=== PATIENT | male | born 1950 | race Caucasian/White ===

== ENCOUNTER 2021-09-01 14:52 | Inpatient (IN) ==
[2021-09-01 16:29] LABS: Basophils # (auto) 0.01 K/uL (0-0.2); Basophils % (auto) 0.2 %; Eosinophils # (auto) 0.09 K/uL (0-0.5); Hematocrit (blood only) 42.2 % (42-52); Hemoglobin 14.2 g/dL (14.0-18.0); Immature Granulocytes # (auto) 0.02 K/uL (0.00-0.02); Immature Granulocytes % (auto) 0.4 %; Lymphocytes # (auto) 0.82 K/uL (1.2-3.4); Lymphocytes % (auto) 17.9 %; Mean Corpuscular Hemoglobin 29.3 pg (25-34); Mean Corpuscular Hgb Conc 33.6 g/dL (32-36); Mean Corpuscular Volume 87.2 fL (80-100); Mean Platelet Volume 9.9 fL (7.4-10.4); Monocytes # (auto) 0.82 K/uL (0.11-0.59); Monocytes % (auto) 17.9 %; Neutrophils # (auto) 2.81 K/uL (1.4-6.5); Neutrophils % (auto) 61.6 %; Platelet Count 204 K/uL (130-400); RDW Coefficient of Variation 13.9 % (11.5-14.5); RDW Standard Deviation 45.1 fL (36.4-46.3); Red Blood Count 4.84 M/uL (4.7-6.1); White Blood Count 4.57 K/uL (4.8-10.8)
[2021-09-01] MEDS ORDERED: Heparin IV Adult Wt-Based Standard WITH Bolus Protocol IV STA ×2 (16:30→21:40)
[2021-09-01 16:43] LABS: BUN Creatinine Ratio 15.9 (10-20); Blood Urea Nitrogen 17 mg/dl (7-18); Calcium 9.3 mg/dl (8.5-10.1); Carbon Dioxide 27 mmol/L (21-32); Chloride 102 mmol/L (98-107); Creatinine Clr Calc Pharmacy 78.8 ml/min; Est GFR (African American) 83.5 ml/min; Est GFR (Non-African American) 72.1 ml/min; Glucose 119 mg/dl (70-99); Lipase 104 U/L (73-393); Sodium 136 mmol/L (136-145)
[2021-09-01] MEDS ORDERED: HEPARIN SOD (PORCINE) 1000 UNIT/ML IV ONE (16:45)
[2021-09-01 16:48] LABS: Troponin I < 0.015 ng/ml (0-0.045)
[2021-09-01] MEDS: HEPARIN SODIUM/DEXTROSE 25,000 UNITS/500 ML BAG IV SCH (16:48)
--- NOTE | 2021-09-01 17:10 | History & Physical Report ---
Date of Service September 01, 2021 Assessment & Plan (1) Bilateral pulmonary embolism: (2) HTN (hypertension): (3) GERD (gastroesophageal reflux disease): (4) Dyslipidemia: Plan: - Continue heparin gtt - hopeful to transition to oral anticoagulation tomorrow pending results of work-up - Monitor on telemetry overnight for any potential arrhythmias - Check ECHO with bubble study for pulm HTN, RV strain - Check bilateral venous dopplers to eval for DVT as potential source for PE - Follow labs - Check BNP - COVID-19 test pending - pt is vaccinated - Continue home medications - Recent A1c was 6.6 - diabetic diet - May consider pulmonary consult if abnormal ECHO or if pt becomes unstable but will hold off for now Pt seen and reviewed with Dr. Mccrary. Plan of care discussed and as outlined above Code Status: Full Code DVT Prophylaxis: heparin gtt for PE Alonso Mckenzie PA-C History of Present Illness Chief Complaint: Abnormal CT of chest Primary Care Provider: Dr. Cintron This is a 71 y/o male with a PMH of HTN, dyslipidemia, and GERD who was referred to the ED today after an outpatient CT from last week showed bilateral PE with potential RV strain. Pt reports that he developed progressive STRONG after receiving COVID vaccination in January. Has undergone various tests since then without clear diagnosis. Developed bronchitis over the summer that was treated with doxycyline but symptoms never completely resolved. Tried albuterol inhaler which did not help. Tried acupuncture treatments but unsure if they helped. Due to persistence of symptoms, he again saw PCP on 08/21 who ordered CTA of chest which was done on 08/28. Results received today showing bilateral PE with possible RV strain so pt referred for admission through the ED. Currently he feels fine at rest. Only symptoms with exertion such as walking uphill or when playing golf when he notes dyspnea, chest heaviness, and fatigue. Denies chest pain or heart racing. He has also noted a dry cough for past several months. Currently he feels like he has a cold right with worsened cough, congestion. Also may feel occasionally feel like heart skips a beat when he bends over - associated lightheadedness but ongoing issue and has not changed from baseline. Stress EKG in March was without evidence of ischemia. No recent travel or surgeri es. Former smoker. No prior hx of blood clots. Allergies Allergy/AdvReac Type Severity Reaction Status Date / Time FROG LEGS Allergy Severe Anaphylaxis Uncoded 09/01/21 16:49 Home Medications Medication Instructions Recorded Confirmed Type benzonatate 100 mg capsule 100 mg PO TID PRN 09/01/21 09/01/21 History diphenhydramine HCl 25 mg capsule 25 mg PO DIRECTED PRN 09/01/21 09/01/21 History (ZzzQuil) famotidine 20 mg tablet 20 - 40 mg PO HS 09/01/21 09/01/21 History hydrochlorothiazide 12.5 mg tablet 12.5 mg PO Q OTHER DAY 09/01/21 09/01/21 History lisinopril 20 mg tablet 40 mg PO DAILY 09/01/21 09/01/21 History pravastatin 40 mg tablet 40 mg PO DAILY 09/01/21 09/01/21 History sildenafil 100 mg tablet 100 mg PO DAILY PRN 09/01/21 09/01/21 History Past Med/Surg History Medical History Dyslipidemia Erectile dysfunction GERD (gastroesophageal reflux disease) HTN (hypertension) Surgical History History of hernia repair Family History (Updated 09/01/21 @ 17:50 by Jessi Mckenzie PA-C) Father Lung cancer Former smoker, asbestos exposure Denies family history of Clotting disorder Social History (Updated 09/01/21 @ 17:15 by Jessi Mckenzie PA-C) Smoking Status: Former smoker Smoking End Date: 11/30 PPD x 18-20 yrs; Hx Alcohol Use: No Feels Safe at Home: Yes Review of Systems Constitutional: + fatigue; no fever, no chills and no sweats Eyes: no diplopia Ear, Nose, Mouth, Throat: + nasal congestion; no ear pain and no sore throat Respiratory: + cough and + dyspnea on exertion Cardiovascular: no chest pain, no paroxysmal nocturnal dyspnea, no syncope, no edema and no claudication Gastrointestinal: no abdominal pain, no nausea, no vomiting, no diarrhea/loose stools and no blood in stools Genitourinary: no dysuria, no urinary frequency or no hematuria Musculoskeletal: no back pain, no neck pain and no myalgia Integumentary: no rash and no skin ulcer Neurologic: as per Subjective / HPI; no generalized weakness and no headache(s) Psychiatric: no depression and no anxiety Physical Exam Constitutional: well developed and well nourished; no acute distress Eyes: PERRL, conjunctivae normal, anicteric sclerae ENMT: external ear and nose normal, oropharynx normal Neck: trachea midline Respiratory: no respiratory distress and no labored breathing Auscultation: lungs clear to auscultation bilaterally; no rales, no rhonchi and no wheezes Cardiovascular: Rate/Rhythm: regular rhythm and + tachycardic Heart Sounds: no gallop, no murmur and no cardiac rub Gastrointestinal (Abdomen): Inspection/Auscultation: normal bowel sounds; abdomen not distended Percussion/Palpation: abdomen soft; abdomen nontender Musculoskeletal: Head/Neck/Chest: normocephalic, head atraumatic and neck supple Skin: no rashes, warm and dry Neurologic: moves all extremities; no focal motor deficits and not confused Psychiatric: A+Ox3, euthymic affect Results & Data Results & Data ([facility]) Vital Signs (Past 12 Hours) Vital Signs Temp Pulse Resp BP Pulse Ox 09/01/21 14:58 36.7 C 109 H 18 147/90 H 95 Laboratory Results Laboratory Results - last 24 hr 09/01/21 09/01/21 09/01/21 16:19 16:19 16:19 WBC 4.57 L RBC 4.84 Hgb 14.2 Hct 42.2 MCV 87.2 MCH 29.3 MCHC 33.6 RDW Std Deviation 45.1 RDW Coeff of Tawny 13.9 Plt Count 204 MPV 9.9 Immature Gran % (Auto) 0.4 Neut % (Auto) 61.6 Lymph % (Auto) 17.9 [place] % (Auto) 17.9 Eos % (Auto) 2.0 Baso % (Auto) 0.2 Neut # (Auto) 2.81 Lymph # (Auto) 0.82 L [place] # (Auto) 0.82 H Eos # (Auto) 0.09 Baso # (Auto) 0.01 Immature Gran # (Auto) 0.02 PT 10.0 INR 1.0 APTT 27.0 PTT Ratio 1.0 Sodium 136 Potassium 4.0 Chloride 102 Carbon Dioxide 27 Anion Gap 7.0 BUN 17 Creatinine 1.05 Est Cr Clr Drug Dosing 78.8 Est GFR ( Amer) 83.5 Est GFR (Non-Af Amer) 72.1 BUN/Creatinine Ratio 15.9 Glucose 119 H Calcium 9.3 Troponin I < 0.015 [address]ase [address] [facility] 08[facility]/21 [facility] FINDINGS LUNGS/PLEURA: The central tracheobronchial tree is patent. There is bilateral bronchial wall thickening. There is a mosaic attenuation/perfusion of the lung parenchyma which may be due to small vessel or small airway disease. There is mild paraseptal apical emphysema. There are a few nonspecific subpleural reticulations in the lateral left lung and lateral right lung base. There are ill-defined basilar ground-glass opacities, postinflammatory. CARDIOVASCULAR, MEDIASTINUM, THYROID: Normal size heart. No septal flattening. No pericardial effusion. Enlarged main pulmonary artery 41 mm. Unremarkable adrenal glands. Moderate hiatal hernia with distal esophageal wall thickening. There are several bilateral hypoattenuating defects within the distal main pulmonary artery, lobar, segmental and subsegmental arterial branches. Despite non gated technique there is prominence of the aortic root to 4.6 cm. LYMPH NODES: Unremarkable SKELETON,CHEST WALL: Lucency at C7, indeterminate maybe a hemangioma. UPPER ABDOMEN: Hepatic steatosis. Partly depicted left renal caliectasis and hydronephrosis vs clustered parapelvic cysts. Unremarkable adrenal glands. IMPRESSION IMPRESSION 1. Large burden pulmonary emboli involving distal main pulmonary artery, lobar, segmental and subsegmental arterial branches. 2. Enlarged main pulmonary artery likely related to elevated right-sided pressures. Recommend correlation with echocardiography. 3. Despite non gated technique, enlargement of the aortic root to 4.6 cm. Recommend correlation with echocardiography. 4. Moderate hiatal hernia. 5. Ill-defined basilar ground-glass opacities, postinflammatory. 6. Partly depicted left renal caliectasis and possible hydronephrosis vs parapelvic cysts. Recommend a dedicated CT abdomen for further evaluation. Medications Administered Heparin Sodium/Dextrose (Heparin Sodium/Dextrose) 25,000 units in 500 mls @ 0.02 mls/hr IV .Q24H [facility]; Protocol Stop: 10/01/21 16:44 Last Admin: 09/01/21 16:48 Dose: 1,500 units/hr, 30 mls/hr Documented by: [id number] Cosigned by: [id number] Discontinued Medications Heparin Sodium (Porcine) (Heparin Sod (Porcine) 1000 Unit/Ml) 1 units IV NOW ONE Stop: 09/01/21 16:46 Last Admin: 09/01/21 16:52 Dose: 7,000 units Documented by: [id number] Cosigned by: [id number] Heparin Sodium/Dextrose (Heparin Iv Adult Wt-Based Standard With Bolus Protocol) 1 ea IV NOW STA; Protocol Stop: 09/01/21 16:31 Last Admin: 09/01/21 16:52 Dose: Not Given Documented by: [id number] Supervising Physician Co-Signing Physician Notes History and physical exam performed by me. History as detailed by Jessi Mckenzie PA-C, notable for 71-year-old man with history of hypertension, dyslipidemia, GERD who was referred to the ER after outpatient CT PE showed bilateral PE with potential right ventricular strain which was done due to progressive dyspnea on exertion since January with recurrent cough. Physical exam notable for elevated blood pressure Lab work grossly unremarkable Outpatient CT PE reviewed on epic note that large burden PE involving the distal main pulmonary artery, lobar and segmental and subsegmental arterial branches. Enlarged main pulmonary artery likely related to elevated right-sided pressure, enlargement of aortic root of 4.6 cm moderate hiatal hernia. He also reported ill-defined basilar groundglass opacity postinflammatory and partly depicted left renal caliectasis and possible hydronephrosis versus parapelvic cysts. Chronic exertional dyspnea Secondary to bilateral PE. Currently on heparin drip. We will continue heparin drip and monitor Currently hemodynamically stable We will get transthoracic echo for further evaluation. Get BNP. Troponin is normal. EKG showed normal sinus rhythm Get bilateral Dopplers of the lower extremity Telemetry monitoring. Patient reports occasional skipped beats but stated that he has not been told he has A. fib. We will needed to step prior to discharge to assess oxygen requirement with activity We will get the CT abdomen and pelvis to further evaluate possible hydronephrosis versus Para pelvic cyst noted in the CT chest Agree with other plans as detailed by Jessi Mckenzie PA-C
--- NOTE | 2021-09-01 19:25 | Emergency Department Note ---
History of Present Illness General Chief Complaint: Respiratory Problems Stated Complaint: BLOOD CLOTS IN LUNGS,REF BY DOC Time Seen by Provider: 09/01/21 15:40 History of Present Illness Provider Complaint: shortness of breath Onset (ago): month(s) (6) Severity: moderate Maximum Pain Intensity: 0 Relieved By: + rest Exacerbated By: + exertion Associated symptoms: no chest pain, no pain with inspiration, no fever, no cough, no wheezing, no sputum production, no orthopnea, no lower extremity pain, no polyuria, no palpitations, no hemoptysis, no nausea/vomiting, no syncope, no abdominal pain, no rash, no sense of impending doom, no chest congestion, no dizziness or no lightheadedness HPI Narrative: Patient states his PCP ordered a CAT scan outpatient at [facility] which showed blood clots and he was instructed to come to the emergency department. Home Medications Medication Instructions Recorded Confirmed Type benzonatate 100 mg capsule 100 mg PO TID PRN 09/01/21 09/01/21 History diphenhydramine HCl 25 mg capsule 25 mg PO DIRECTED PRN 09/01/21 09/01/21 History (ZzzQuil) famotidine 20 mg tablet 20 - 40 mg PO HS 09/01/21 09/01/21 History hydrochlorothiazide 12.5 mg tablet 12.5 mg PO Q OTHER DAY 09/01/21 09/01/21 Hist ory lisinopril 20 mg tablet 40 mg PO DAILY 09/01/21 09/01/21 History pravastatin 40 mg tablet 40 mg PO DAILY 09/01/21 09/01/21 History sildenafil 100 mg tablet 100 mg PO DAILY PRN 09/01/21 09/01/21 History Allergies Allergy/AdvReac Type Severity Reaction Status Date / Time FROG LEGS Allergy Severe Anaphylaxis Uncoded 09/01/21 16:49 Past Med/Surg History Medical History Dyslipidemia Erectile dysfunction GERD (gastroesophageal reflux disease) HTN (hypertension) Surgical History History of hernia repair Family History Father Lung cancer Former smoker, asbestos exposure Denies family history of Clotting disorder Social History (Reviewed 10/04/21 @ 19:21 by Juan Langston Smoking Status: Former smoker Smoking End Date: 11/30 PPD x 18-20 yrs; Hx Alcohol Use: No Feels Safe at Home: Yes Review of Systems A total of 10 systems reviewed and were otherwise negative Physical Exam Vital Signs: Vital Signs - 24 hr 09/01/21 14:58 09/01/21 16:14 09/01/21 17:00 Temperature 36.7 C Temperature Source Temporal Artery Sc an Pulse Rate 109 H 79 89 Pulse Rate from Sp O2 Sensor 72 88 Respiratory Rate 18 22 21 Respiratory Effort / Characteristics Non-Labored Respiratory Depth Normal Blood Pressure 147/90 H 178/91 H 171/85 H Blood Pressure Shira n 109 120 113 Pulse Oximetry 95 98 94 Oxygen Delivery Me thod Room Air Sepsis Recent Feve r Within 48 Hours No Sepsis New/Unexpla ined Change in Men sonali Status No Sepsis Action Take n by Nursing No Action Required Physical Exam: Physical Exam GENERAL: He is oriented to person, place, and time. He appears well-developed and well-nourished. He does not appear distressed. HENT: Exam performed. - Head: Normocephalic and atraumatic. - Right Ear: External ear normal. No mastoid tenderness. - Left Ear: External ear normal. No mastoid tenderness. - Mouth/Throat: The oropharynx is clear and moist. No trismus in the jaw. No dental abscesses or uvula swelling. No oropharyngeal exudate or tonsillar abscesses. EYES: Conjunctivae and EOM are normal. Pupils are equal, round, and reactive to light. Right eye exhibits no discharge. Left eye exhibits no discharge. No scleral icterus. NECK: Normal range of motion. Neck supple. No JVD present. No spinous process tenderness present. No carotid bruit present. No rigidity. No tracheal deviation and normal range of motion present. No Brudzinski's sign and no Kernig's sign n oted. CV: Normal rate, regular rhythm, normal heart sounds and intact distal pulses. There is no peripheral edema. Palpable radial pulses bue. PULM/CHEST: Effort normal and breath sounds normal. No respiratory distress. No stridor. He has no wheezes. He has no rales. - Chest Wall: He exhibits no tenderness. ABD: The abdomen is soft. Bowel sounds are normal. He has no distension. No mass is present. There is no tenderness. There is no rebound, no guarding, no Stoll's sign and no tenderness at McBurney's point. Rovsig negative. MUSC/SKEL: Normal range of motion. There is no peripheral edema, tenderness or deformity. LYMPH: No cervical adenopathy. NEURO: He is alert and oriented to person, place, and time. He has normal strength. No cranial nerve deficit or sensory deficit. Coordination and gait normal. GCS eye subscore is 4. GCS verbal subscore is 5. GCS motor subscore is 6. Cerebellar tests wnl. SKIN: Skin is warm and dry. He is not diaphoretic. PSYCH: He has a normal mood and affect. Behavior is normal. Judgment and thought content normal. Course Course 1540: The patient was evaluated in room C1. A complete history and physical exam was performed Cardiac monitoring: An order was placed for continuous cardiac monitoring. The monitor shows a rate of 80 with sinus rhythm 1645: Vital signs stable. clinical laboratory manager Chelsy was able to access the [employer] EMR and was able to obtain the results from a CTA of the chest done on August 28, 2021. The results mention large burden of pulmonary emboli involving the distal main pulmonary artery, lobar, segmental, and subsegmental arterial branches. Enlarged main pulmonary artery likely related to elevated right-sided pressures. Recommend correlation with echocardiography. Given this diffuse clot burden, the patient will be anticoagulated with heparin [facility]. Administered Medications Heparin Sodium/Dextrose (Heparin Sodium/Dextrose) 25,000 units in 500 mls @ 0.02 mls/hr IV .Q24H [facility]; Protocol Stop: 10/01/21 16:44 Last Admin: 09/01/21 16:48 Dose: 1,500 units/hr, 30 mls/hr Documented by: [id number] Cosigned by: [id number] Discontinued Medications Heparin Sodium (Porcine) (Heparin Sod (Porcine) 1000 Unit/Ml) 1 units IV NOW ONE Stop: 09/01/21 16:46 Last Admin: 09/01/21 16:52 Dose: 7,000 units Documented by: [id number] Cosigned by: [id number] Heparin Sodium/Dextrose (Heparin Iv Adult Wt-Based Standard With Bolus Protocol) 1 ea IV NOW STA; Protocol Stop: 09/01/21 16:31 Last Admin: 09/01/21 16:52 Dose: Not Given Documented by: [id number] Medical Decision Making Laboratory Data Result diagrams: 09/01/21 16:19 09/01/21 16:19 Lab Results 09/01/21 09/01/21 09/01/21 Range/Units 16:19 16:19 16:19 WBC 4.57 L (4.8-10.8) K/uL RBC 4.84 (4.7-6.1) M/uL Hgb 14.2 (14.0-18.0) g/dL Hct 42.2 (42-52) % MCV 87.2 (80-100) fL MCH 29.3 (25-34) pg MCHC 33.6 (32-36) g/dL RDW Std Deviation 45.1 (36.4-46.3) fL RDW Coeff of Tawny 13.9 (11.5-14.5) % Plt Count 204 (130-400) K/uL MPV 9.9 (7.4-10.4) fL Immature Gran % (Auto) 0.4 % Neut % (Auto) 61.6 % Lymph % (Auto) 17.9 % [place] % (Auto) 17.9 % Eos % (Auto) 2.0 % Baso % (Auto) 0.2 % Neut # (Auto) 2.81 (1.4-6.5) K/uL Lymph # (Auto) 0.82 L (1.2-3.4) K/uL [place] # (Auto) 0.82 H (0.11-0.59) K/uL Eos # (Auto) 0.09 (0-0.5) K/uL Baso # (Auto) 0.01 (0-0.2) K/uL Immature Gran # (Auto) 0.02 (0.00-0.02) K/uL PT 10.0 (9.0-12.0) Seconds INR 1.0 (0.9-1.1) APTT 27.0 (21.0-31.0) Seconds PTT Ratio 1.0 Sodium 136 (136-145) mmol/L Potassium 4.0 (3.5-5.1) mmol/L Chloride 102 (98-107) mmol/L Carbon Dioxide 27 (21-32) mmol/L Anion Gap 7.0 (3-11) BUN 17 (7-18) mg/dl Creatinine 1.05 (0.6-1.4) mg/dl Est Cr Clr Drug Dosing 78.8 ml/min Est GFR ( Amer) 83.5 ml/min Est GFR (Non-Af Amer) 72.1 ml/min BUN/Creatinine Ratio 15.9 (10-20) Glucose 119 H (70-99) mg/dl Calcium 9.3 (8.5-10.1) mg/dl Troponin I < 0.015 (0-0.045) ng/ml Lipase 104 (73-393) U/L COVID-19 Eval Order 09/01/21 Range/Units 16:28 WBC (4.8-10.8) K/uL RBC (4.7-6.1) M/uL Hgb (14.0-18.0) g/dL Hct (42-52) % MCV (80-100) fL MCH (25-34) pg MCHC (32-36) g/dL RDW Std Deviation (36.4-46.3) fL RDW Coeff of Tawny (11.5-14.5) % Plt Count (130-400) K/uL MPV (7.4-10.4) fL Immature Gran % (Auto) % Neut % (Auto) % Lymph % (Auto) % [place] % (Auto) % Eos % (Auto) % Baso % (Auto) % Neut # (Auto) (1.4-6.5) K/uL Lymph # (Auto) (1.2-3.4) K/uL [place] # (Auto) (0.11-0.59) K/uL Eos # (Auto) (0-0.5) K/uL Baso # (Auto) (0-0.2) K/uL Immature Gran # (Auto) (0.00-0.02) K/uL PT (9.0-12.0) Seconds INR (0.9-1.1) APTT (21.0-31.0) Seconds PTT Ratio Sodium (136-145) mmol/L Potassium (3.5-5.1) mmol/L Chloride (98-107) mmol/L Carbon Dioxide (21-32) mmol/L Anion Gap (3-11) BUN (7-18) mg/dl Creatinine (0.6-1.4) mg/dl Est Cr Clr Drug Dosing ml/min Est GFR ( Amer) ml/min Est GFR (Non-Af Amer) ml/min BUN/Creatinine Ratio (10-20) Glucose (70-99) mg/dl Calcium (8.5-10.1) mg/dl Troponin I (0-0.045) ng/ml Lipase (73-393) U/L COVID-19 Eval Order Covid19 at [facility] ECG Data Interpretation: Sinus rhythm with a rate of 80. VT and QTc intervals are within normal limits. QRS 78. No ST elevation or ST depression. MDM Narrative 1540: The patient was evaluated in room C1. A complete history and physical exam was performed Cardiac monitoring: An order was placed for continuous cardiac monitoring. The monitor shows a rate of 80 with sinus rhythm 1645: Vital signs stable. clinical laboratory manager Chelsy was able to access the [employer] EMR and was able to obtain the results from a CTA of the chest done on August 28, 2021. The results mention large burden of pulmonary emboli involving the distal main pulmonary artery, lobar, segmental, and subsegmental arterial branches. Enlarged main pulmonary artery likely related to elevated right-sided pressures. Recommend correlation with echocardiography. Given this diffuse clot burden, the patient will be anticoagulated with heparin [facility]. Impression & Plan Bilateral pulmonary embolism Critical Care Time Critical Care Time: Yes Total Critical Care Time: 60 I have personally spent greater than 60 minutes of critical care time in the direct management of this patient. This includes bedside care, interpretation of diagnostic studies, and testing, discussion with consultants, patient, and family members, and other required patient management activities. This 60 minutes is in excess of all separately billable procedures. Discharge Plan Visit Data Chief Complaint: Respiratory Problems Stated Complaint: BLOOD CLOTS IN LUNGS,REF BY DOC Discharge Problem: Bilateral pulmonary embolism Patient Disposition: Admitted As Inpatient Forms Stand Alone Forms: [facility] Prescriptions Prescriptions: No Action pravastatin 40 mg tablet 40 mg PO DAILY RF: 0 lisinopril 20 mg tablet 40 mg PO DAILY RF: 0 sildenafil 100 mg tablet 100 mg PO DAILY PRN (Reason: Erectile Dysfunction) RF: 0 famotidine 20 mg tablet 20 - 40 mg PO HS RF: 0 benzonatate 100 mg capsule 100 mg PO TID PRN (Reason: Cough) RF: 0 diphenhydramine HCl [ZzzQuil] 25 mg Capsule 25 mg PO DIRECTED PRN (Reason: SLEEP/COUGH) RF: 0 hydrochlorothiazide 12.5 mg tablet 12.5 mg PO Q OTHER DAY RF: 0 Referrals Referrals: Dilshad Mejia DO [Primary Care Provider] -
--- NOTE | 2021-09-01 19:31 | CT Scan Report ---
CT OF THE ABDOMEN AND PELVIS WITHOUT CONTRAST CLINICAL HISTORY: Assess possible hydronephrosis vs parapelvic cyst COMPARISON STUDY: No previous studies for comparison. TECHNIQUE: Axial images of the abdomen and pelvis were obtained without IV contrast. Images were revi ewed in the axial, sagittal, and coronal planes. Automated exposure control was utilized for the rena dy. A dose lowering technique was utilized adhering to the principles of ALARA. FINDINGS: Lung bases are unremarkable. A moderate sized hiatal hernia is noted with partially intrath oracic stomach. Evaluation of the abdomen and pelvis is suboptimal on this unenhanced examination. Th e liver, spleen, adrenal glands, right kidney and pancreas are unremarkable. There is no biliary or p ancreatic ductal dilatation. There is no peripancreatic or pericholecystic infiltration. Left-sided r enal parapelvic cysts are noted. 1 cm lesion arising from the lower pole of the left kidney is subopt imally assessed on this unenhanced exam but this measures water attenuation and favors a cyst. There is no hydronephrosis. There are no urinary calculi. Bladder is mildly distended. There is no evidence for a bowel obstruction. Note is made of colonic diverticulosis without evidence for acute diverticu litis. Appendix unremarkable. Small fat-containing umbilical hernia is present. There is no lymphaden opathy. There is no fluid collection is suggest an abscess. No acute fracture or suspicious lesion is identified within the visualized skeletal structures. IMPRESSION: 1. No acute process within the abdomen or pelvis on unenhanced exam. 2. Left sided renal parapelvic cysts. No hydronephrosis. 3. Moderate sized hiatal hernia. ACT 112: Negative or not required by law. Electronically signed by: Amando Miller M.D. 09/01/2021 7:29 PM
[2021-09-01] MEDS ORDERED: ACETAMINOPHEN 325 MG TAB PO PRN (21:37)
[2021-09-01] MEDS: FAMOTIDINE 20 MG TAB PO SCH (21:59)
[2021-09-02 00:54] LABS: Partial Thromboplastin Ratio 2.4
[2021-09-02 01:10] LABS: Partial Thromboplastin Time 63.2 Seconds (21.0-31.0)
[2021-09-02 05:04] LABS: Basophils # (auto) 0.02 K/uL (0-0.2); Basophils % (auto) 0.5 %; Eosinophils # (auto) 0.08 K/uL (0-0.5); Eosinophils % (auto) 1.9 %; Hematocrit (blood only) 40.3 % (42-52); Hemoglobin 13.7 g/dL (14.0-18.0); Immature Granulocytes # (auto) 0.01 K/uL (0.00-0.02); Immature Granulocytes % (auto) 0.2 %; Lymphocytes # (auto) 1.03 K/uL (1.2-3.4); Lymphocytes % (auto) 24.6 %; Mean Corpuscular Hemoglobin 29.5 pg (25-34); Mean Corpuscular Volume 86.9 fL (80-100); Mean Platelet Volume 9.5 fL (7.4-10.4); Monocytes # (auto) 0.73 K/uL (0.11-0.59); Monocytes % (auto) 17.4 %; Neutrophils # (auto) 2.32 K/uL (1.4-6.5); Neutrophils % (auto) 55.4 %; Platelet Count 186 K/uL (130-400); RDW Coefficient of Variation 14.1 % (11.5-14.5); RDW Standard Deviation 44.7 fL (36.4-46.3); Red Blood Count 4.64 M/uL (4.7-6.1); White Blood Count 4.19 K/uL (4.8-10.8)
[2021-09-02 05:22] LABS: BUN Creatinine Ratio 12.6 (10-20); Calcium 8.9 mg/dl (8.5-10.1); Creatinine Clr Calc Pharmacy 77.1 ml/min; Est GFR (African American) 82.6 ml/min; Est GFR (Non-African American) 71.3 ml/min; Potassium 4.2 mmol/L (3.5-5.1)
[2021-09-02 05:23] LABS: Partial Thromboplastin Ratio 2.5
[2021-09-02 06:17] LABS: Partial Thromboplastin Time 65.3 Seconds (21.0-31.0)
[2021-09-02] MEDS: lisinopril 40 MG TAB PO SCH (08:14)
[2021-09-02] MEDS: PRAVASTATIN SOD 40 MG TAB PO SCH (08:14)
--- NOTE | 2021-09-02 08:45 | Electrocardiogram Report ---
Test Reason : Blood Pressure : / mmHG Vent. Rate : 080 BPM Atrial Rate : 080 BPM P-R Int : 186 ms QRS Dur : 078 ms QT Int : 352 ms P-R-T Axes : 043 000 035 degrees QTc Int : 405 ms Normal sinus rhythm Normal ECG When compared with ECG of 18-JUL-2003 16:15, T wave amplitude has decreased in Anterior leads Confirmed by Robin Alonzo [id number] on 09/02/2021 8:45:12 AM Referred By: Dilshad Mejia Confirmed By:Domingo Alonzo
[2021-09-02] MEDS: HEPARIN SODIUM/DEXTROSE 25,000 UNITS/500 ML BAG IV SCH (09:30)
--- NOTE | 2021-09-02 13:06 | Hospitalist Progress Note ---
Date of Service September 02, 2021 Assessment & Plan (1) Bilateral pulmonary embolism: (2) COVID-19 virus infection: (3) HTN (hypertension): (4) GERD (gastroesophageal reflux disease): (5) Dyslipidemia: Plan: Outpatient [facility] that large burden PE involving the distal main pulmonary artery, lobar and segmental and subsegmental arterial branches. Enlarged main pulmonary artery likely related to elevated right-sided pressure, enlargement of aortic root of 4.6 cm moderate hiatal hernia. He also reported ill-defined basilar groundglass opacity postinflammatory and partly depicted left renal caliectasis and possible hydronephrosis versus parapelvic cysts. Currently on heparin drip. Telemetry overnight showed normal sinus rhythm. Troponin and BNP were not elevated. 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 Patient's Covid test is positive. Patient only reports intermittent cough. Outpatient CT did report ill-defined basilar groundglass opacity referred to as postinflammatory. Patient does not require any oxygen. Currently on room air saturating 96 to 98%. No need for Covid specific therapies at this time Reported he received two doses of Lance vaccine earlier this year. He also reported a negative Covid test in the months between and now. Based on patient history of progressive worsening shortness of breath with exertion shortly after patient's Covid vaccine worsening over time till now, VTE associated with COVID 19 vaccine cannot be ruled out. However, patient currently has COVID-19 infection PE may also be related to that. Plan to transition to NOAC if still stable by tomorrow. Will need 2 step prior to discharge Recent A1c was 6.6 - diabetic diet Continue home antihypertensive regimen Admission and Anticipated Discharge Date Admission Date: September 01, 2021 Subjective 71-year-old man with history of hypertension, dyslipidemia, GERD who was referred to the ER after outpatient CT PE showed bilateral PE with potential right ventricular strain which was done due to progressive dyspnea on exertion since after getting COVID vaccine in January/February with recurrent cough. Being managed for bilateral PE. Found to be positive for COVID-19 infection. Patient seen and examined this morning. Reports mild intermittent cough unchanged from prior. Denies any shortness of breath at rest. Denies any headache, dizziness, rhinorrhea, sore throat, nasal congestion Denies any nausea, vomiting, abdominal pain, diarrhea constipation Denies any chest pain, palpitations. Denies any dysuria, frequency, urgency, incontinence Denies any fevers or chills Review of Systems Review of Systems: All systems reviewed & are unremarkable except as noted in Subjective Physical Exam Constitutional: + well hydrated; no acute distress Eyes: PERRL, conjunctivae normal, anicteric sclerae ENMT: external ear and nose normal, oropharynx normal Respiratory: normal respiratory effort, lungs clear to auscultation Cardiovascular: RRR, no murmur, no edema Gastrointestinal (Abdomen): normal bowel sounds, soft, nontender, no hepatosplenomegaly Musculoskeletal: no cyanosis or clubbing, extremities motor strength 5/5 Neurologic: PERRL, EOMI, accommodation nl, no face palsy, no dysarthria Psychiatric: A+Ox3, euthymic affect Results & Data Results & Data ([facility]) Vital Signs (Past 12 Hours) Vital Signs Temp Pulse Pulse Resp BP Pulse Ox 09/02/21 11:35 36.8 C 76 18 133/94 96 09/02/21 08:00 82 09/02/21 07:26 36.7 C 78 18 152/98 H 96 09/02/21 03:21 36.5 C 90 18 172/71 H 94 Laboratory Results Abnormal lab results 09/01/21 09/01/21 09/01/21 Range/Units 16:19 16:19 16:28 WBC 4.57 L (4.8-10.8) K/uL RBC (4.7-6.1) M/uL Hgb (14.0-18.0) g/dL Hct (42-52) % Lymph # (Auto) 0.82 L (1.2-3.4) K/uL [place] # (Auto) 0.82 H (0.11-0.59) K/uL APTT (21.0-31.0) Seconds Glucose 119 H (70-99) mg/dl SARS-CoV-2 (PCR) POSITIVE A* (Negative) 09/02/21 09/02/21 09/02/21 Range/Units 00:12 04:50 04:50 WBC 4.19 L (4.8-10.8) K/uL RBC 4.64 L (4.7-6.1) M/uL Hgb 13.7 L (14.0-18.0) g/dL Hct 40.3 L (42-52) % Lymph # (Auto) 1.03 L (1.2-3.4) K/uL [place] # (Auto) 0.73 H (0.11-0.59) K/uL APTT 63.2 H* (21.0-31.0) Seconds Glucose 125 H (70-99) mg/dl SARS-CoV-2 (PCR) (Negative) 09/02/21 Range/Units 04:50 WBC (4.8-10.8) K/uL RBC (4.7-6.1) M/uL Hgb (14.0-18.0) g/dL Hct (42-52) % Lymph # (Auto) (1.2-3.4) K/uL [place] # (Auto) (0.11-0.59) K/uL APTT 65.3 H* (21.0-31.0) Seconds Glucose (70-99) mg/dl SARS-CoV-2 (PCR) (Negative)
[2021-09-02] MEDS ORDERED: diphenhydrAMINE Capsule 25 MG CAP PO PRN (19:43)
[2021-09-02] MEDS: FAMOTIDINE 20 MG TAB PO SCH (20:29)
[2021-09-03] MEDS: HEPARIN SODIUM/DEXTROSE 25,000 UNITS/500 ML BAG IV SCH (03:32)
[2021-09-03 06:30] LABS: Basophils # (auto) 0.02 K/uL (0-0.2); Basophils % (auto) 0.5 %; Eosinophils # (auto) 0.13 K/uL (0-0.5); Hematocrit (blood only) 39.1 % (42-52); Hemoglobin 13.1 g/dL (14.0-18.0); Immature Granulocytes # (auto) 0.02 K/uL (0.00-0.02); Immature Granulocytes % (auto) 0.5 %; Lymphocytes # (auto) 1.22 K/uL (1.2-3.4); Lymphocytes % (auto) 28.5 %; Mean Corpuscular Hemoglobin 29.4 pg (25-34); Mean Corpuscular Hgb Conc 33.5 g/dL (32-36); Mean Corpuscular Volume 87.7 fL (80-100); Mean Platelet Volume 9.5 fL (7.4-10.4); Monocytes # (auto) 0.81 K/uL (0.11-0.59); Monocytes % (auto) 18.9 %; Neutrophils # (auto) 2.08 K/uL (1.4-6.5); Neutrophils % (auto) 48.6 %; Platelet Count 177 K/uL (130-400); RDW Coefficient of Variation 13.9 % (11.5-14.5); RDW Standard Deviation 44.6 fL (36.4-46.3); Red Blood Count 4.46 M/uL (4.7-6.1); White Blood Count 4.28 K/uL (4.8-10.8)
[2021-09-03 06:53] LABS: Partial Thromboplastin Ratio 2.9
[2021-09-03 07:08] LABS: BUN Creatinine Ratio 14.6 (10-20); Calcium 8.9 mg/dl (8.5-10.1); Creatinine Clr Calc Pharmacy 75.5 ml/min; Est GFR (African American) 79.8 ml/min; Est GFR (Non-African American) 68.9 ml/min
[2021-09-03 07:09] LABS: Partial Thromboplastin Time 76.9 Seconds (21.0-31.0)
[2021-09-03] MEDS: PRAVASTATIN SOD 40 MG TAB PO SCH (08:07)
[2021-09-03] MEDS: lisinopril 40 MG TAB PO SCH (08:07)
[2021-09-03] MEDS ORDERED: hydroCHLOROthiazide 25 MG TAB PO SCH (09:00)
[2021-09-03] MEDS ORDERED: APIXABAN 5 MG TABLET PO SCH (09:15)
--- NOTE | 2021-09-03 13:12 | Hospitalist Progress Note ---
Date of Service September 03, 2021 Assessment & Plan (1) Bilateral pulmonary embolism: (2) COVID-19 virus infection: (3) HTN (hypertension): (4) GERD (gastroesophageal reflux disease): (5) Dyslipidemia: Plan: Acute Bilateral Pulmonary Embolism COVID 19 infection -Outpatient CT PE reviewed on [facility] note that large burden PE involving the distal main pulmonary artery, lobar and segmental and subsegmental arterial branches. Enlarged main pulmonary artery likely related to elevated right-sided pressure, enlargement of aortic root of 4.6 cm moderate hiatal hernia. He also reported ill-defined basilar groundglass opacity postinflammatory and partly depicted left renal caliectasis and possible hydronephrosis versus parapelvic cysts. 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 -IV Heparin transitioned to Eliquis -No bleeding issues Advised to get Hypercoagulable work up as outpatient COVID 19 Infection Saturating well on Room Air Outpatient CT did report ill-defined basilar groundglass opacity referred to as postinflammatory. Currently doesn't qualify for treatment Reported that he received two doses of Lance vaccine earlier this year. Continue Isolation 2 Step: Did not qualify for Oxygen DM II HbA1c 6.6 diet controlled HTN Continue home meds DVT Px: IV Heparin Code Status Full Code Admission and Anticipated Discharge Date Admission Date: September 01, 2021 Subjective Patient is seen and examined at bedside States having minimal cough with no expectoration Denies dyspnea, dizziness, nausea, abdominal pain, diarrhea On IV heparin, no bleeding issues Offers no new complaints Review of Systems Review of Systems: All systems reviewed & are unremarkable except as noted in Subjective Physical Exam Physical Exam: Physical Exam: Vitals signs as noted above General Appearance:Moderately built and nourished, no apparent distress Head: normocephalic, Atraumatic Eyes: normal inspection, EOMI Neck: supple, Trachea midline Respiratory/Chest: Normal breath sounds, CTA, No accessory muscle use Cardiovascular: S1, S2, No murmur Abdomen/GI:Soft, Non tender, Bowel sounds present Extremities/Musculoskeletal:normal inspection, no edema Neurologic/Psych:AAOX3, grossly no focal neurological deficits Skin: normal color, warm Results & Data Results & Data ([facility]) Vital Signs (Past 12 Hours) Vital Signs Temp Pulse Pulse Pulse Pulse Pulse Resp 09/03/21 11:45 36.5 C 74 16 09/03/21 11:21 36.6 C 68 18 09/03/21 10:51 86 83 83 09/03/21 07:55 36.6 C 68 18 09/03/21 07:39 58 L 09/03/21 03:14 36.8 C 76 20 Resp Resp Resp BP Pulse Ox Pulse Ox Pulse Ox 09/03/21 11:45 132/92 98 09/03/21 11:21 114/79 95 09/03/21 10:51 16 16 16 96 97 09/03/21 07:55 114/79 95 09/03/21 07:39 09/03/21 03:14 115/85 92 Pulse Ox 09/03/21 11:45 09/03/21 11:21 09/03/21 10:51 97 09/03/21 07:55 09/03/21 07:39 09/03/21 03:14 Laboratory Results Short CBC 09/03/21 Range/Units 06:03 WBC 4.28 L (4.8-10.8) K/uL Hgb 13.1 L (14.0-18.0) g/dL Hct 39.1 L (42-52) % Plt Count 177 (130-400) K/uL BMP 09/03/21 06:03 Sodium 137 Potassium 4.0 Chloride 104 Carbon Dioxide 27 BUN 16 Creatinine 1.09 Glucose 115 H Calcium 8.9
--- NOTE | 2021-09-03 14:55 | Discharge Summary ---
Date of Service September 03, 2021 Admission HPI Per Admitting Provider This is a 71 y/o male with a PMH of HTN, dyslipidemia, and GERD who was referred to the ED today after an outpatient CT from last week showed bilateral PE with potential RV strain. Pt reports that he developed progressive STRONG after receiving COVID vaccination in January. Has undergone various tests since then without clear diagnosis. Developed bronchitis over the summer that was treated with doxycyline but symptoms never completely resolved. Tried albuterol inhaler which did not help. Tried acupuncture treatments but unsure if they helped. Due to persistence of symptoms, he again saw PCP on 08/21 who ordered CTA of chest which was done on 08/28. Results received today showing bilateral PE with possible RV strain so pt referred for admission through the ED. Currently he feels fine at rest. Only symptoms with exertion such as walking uphill or when playing golf when he notes dyspnea, chest heaviness, and fatigue. Denies chest pain or heart racing. He has also noted a dry cough for past several months. Currently he feels like he has a cold right with worsened cough, congestion. Also may feel occasionally feel like heart skips a beat when he bends over - associated lightheadedness but ongoing issue and has not changed from baseline. Stress EKG in March was without evidence of ischemia. No recent travel or surgeries. Former smoker. No prior hx of blood clots. Admission Exam Per Admitting Provider Physical Exam Constitutional: well developed and well nourished; no acute distress Eyes: PERRL, conjunctivae normal, anicteric sclerae ENMT: external ear and nose normal, oropharynx normal Neck: trachea midline Respiratory: no respiratory distress and no labored breathing Auscultation: lungs clear to auscultation bilaterally; no rales, no rhonchi and no wheezes Cardiovascular: Rate/Rhythm: regular rhythm and + tachycardic Heart Sounds: no gallop, no murmur and no cardiac rub Gastrointestinal (Abdomen): Inspection/Auscultation: normal bowel sounds; abdomen not distended Percussion/Palpation: abdomen soft; abdomen nontender Musculoskeletal: Head/Neck/Chest: normocephalic, head atraumatic and neck supple Skin: no rashes, warm and dry Neurologic: moves all extremities; no focal motor deficits and not confused Psychiatric: A+Ox3, euthymic affect Principal Diagnosis COVID-19 virus infection Acute Bilateral Pulmonary Embolism Discharge Data Allergies Allergy/AdvReac Type Severity Reaction Status Date / Time FROG LEGS Allergy Severe Anaphylaxis Uncoded 09/01/21 16:49 Consultations 09/01/21 16:31 ED Decision to Admit Stat Ordered Studies 09/01/21 18:18 CT abd pelvis wo con Stat Hospital Course (1) Bilateral pulmonary embolism: (2) COVID-19 virus infection: (3) HTN (hypertension): (4) GERD (gastroesophageal reflux disease): (5) Dyslipidemia: Acute Bilateral Pulmonary Embolism COVID 19 infection -Outpatient CT PE reviewed on [facility] note that large burden PE involving the distal main pulmonary artery, lobar and segmental and subsegmental arterial branches. Enlarged main pulmonary artery likely related to elevated right-sided pressure, enlargement of aortic root of 4.6 cm moderate hiatal hernia. He also reported ill-defined basilar groundglass opacity postinflammatory and partly depicted left renal caliectasis and possible hydronephrosis versus parapelvic cysts. 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 -IV Heparin transitioned to Eliquis -No bleeding issues Advised to get Hypercoagulable work up as outpatient COVID 19 Infection Saturating well on Room Air Outpatient CT did report ill-defined basilar groundglass opacity referred to as postinflammatory. Currently doesn't qualify for treatment Reported that he received two doses of Lance vaccine earlier this year. Continue Isolation 2 Step: Did not qualify for Oxygen DM II HbA1c 6.6 diet controlled HTN Continue home meds DVT Px: IV Heparin Code Status Full Code Total Time Total Time Spent Total Time Spent (In Minutes): 40 minutes Discharge Plan Discharge Items Patient Disposition: Home - Self-Care Reason For Visit: BILATERAL PE Discharge Diagnosis: COVID-19 virus infection Acute Bilateral Pulmonary Embolism Activity: Per Instructions section Exercise/Sports: Wait until after follow-up appointment Non-emergency contact: Primary Care Provider Call non-emergency contact if: you have any medication questions, your symptoms worsen, your pain is not controlled, your pain is concerning for you and you have a fever Follow-up/Referrals: Dilshad Mejia DO [Primary Care Provider] - (Date & Time 09/10/2021 11:00 AM Provider Dilshad Mejia DO [facility] PLEASE NOTE THAT THIS IS A TELEPHONE CALL APPOINTMENT. YOUR PROVIDER WILL CALL YOU AT THE APPOINTMENT TIME. IF YOU HAVE ANY QUESTIONS REGARDING THIS APPOINTMENT, PLEASE CALL ) Diet: Carb Consistent or DM2 Addtl Attending Provider Instructions: Follow-up with your primary care physician on 09/10/2021 11:00 AM as scheduled Take Apixaban (Eliquis) 10 mg twice a day for 1 week, then start taking 5 mg twice a day. Duration of apixaban treatment to be determined by your primary care physician. Get Blood work (Hypercoagulable work-up) as outpatient and follow up with your physician for further assessment of any other risk factors for hypercoagulable state. Seek immediate medical attention if your symptoms reoccur or worsen Please take all medications as instructed on discharge list below. Please call if you have any questions or problems. You can reach a [facility] hospitalist on duty at [facility] 24 hours a day by calling [phone] Home Isolation COVID-19 Instructions The following information about Home Isolation is from the CDC Website: https://www.cdc.gov/coronavirus/2019-ncov/hcp/vbgpsecj-kghfifi-waqlgd.html Stay home except to get medical care People who are mildly ill with COVID-19 are able to isolate at home during their illness. You should restrict activities outside your home, except for getting medical care. Do not go to work, school, or public areas. Avoid using public transportation, ride-sharing, or taxis. Separate yourself from other people and animals in your home People: As much as possible, you should stay in a specific room and away from other people in your home. Also, you should use a separate bathroom, if available. Animals: You should restrict contact with pets and other animals while you are sick with COVID-19, just like you would around other people. Although there have not been reports of pets or other animals becoming sick with COVID-19, it is still recommended that people sick with COVID-19 limit contact with animals until more information is known about the virus. When possible, have another member of your household care for your animals while you are sick. If you are sick with COVID-19, avoid contact with your pet, including petting, snuggling, being kissed or licked, and sharing food. If you must care for your pet or be around animals while you are sick, wash your hands before and after you interact with pets and wear a face mask. Call ahead before visiting your doctor If you have a medical appointment, call the healthcare provider and tell them that you have or may have COVID-19. This will help the healthcare providers office take steps to keep other people from getting infected or exposed. Wear a face mask You should wear a face mask when you are around other people (e.g., sharing a room or vehicle) or pets and before you enter a healthcare providers office. If you are not able to wear a face mask (for example, because it causes trouble breathing), then people who live with you should not stay in the same room with you, or they should wear a face mask if they enter your room. Cover your coughs and sneezes Cover your mouth and nose with a tissue when you cough or sneeze. Throw used tissues in a lined trash can. Immediately wash your hands with soap and water for at least 20 seconds or, if soap and water are not available, clean your hands with an alcohol-based hand supervisor shed workers that contains at least 60% alcohol. Clean your hands often Wash your hands often with soap and water for at least 20 seconds, especially after blowing your nose, coughing, or sneezing; going to the bathroom; and before eating or preparing food. If soap and water are not readily available, use an alcohol-based hand supervisor shed workers with at least 60% alcohol, covering all surfaces of your hands and rubbing them together until they feel dry. Soap and water are the best option if hands are visibly dirty. Avoid touching your eyes, nose, and mouth with unwashed hands. Avoid sharing personal household items You should not share dishes, drinking glasses, cups, eating utensils, towels, or bedding with other people or pets in your home. After using these items, they should be washed thoroughly with soap and water. Clean all high-touch surfaces everyday High touch surfaces include counters, tabletops, doorknobs, bathroom fixtures, toilets, phones, keyboards, tablets, and bedside tables. Also, clean any surfaces that may have blood, stool, or body fluids on them. Use a household cleaning spray or wipe, according to the label instructions. Labels contain instructions for safe and effective use of the cleaning product including precautions you should take when applying the product, such as wearing gloves and making sure you have good ventilation during use of the product. Monitor your symptoms Seek prompt medical attention if your illness is worsening (e.g., difficulty breathing).Beforeseeking care, call your healthcare provider and tell them that you have, or are being evaluated for, COVID-19. Put on a face mask before you enter the facility. These steps will help the healthcare providers office to keep other people in the office or waiting room from getting infected or exposed. Ask your healthcare provider to call the local or state health department. Persons who are placed under active monitoring or facilitated self- monitoring should follow instructions provided by their local health department or occupational health professionals, as appropriate. When working with your local health department check their available hours. If you have a medical emergency and need to call 911, notify the dispatch personnel that you have, or are being evaluated for COVID-19. If possible, put on a face mask before emergency medical services arrive. Discontinuing home isolation Patients with confirmed COVID-19 should remain under home isolation precautions until the risk of secondary transmission to others is thought to be low. The decision to discontinue home isolation precautions should be made on a [id number] basis, in consultation with healthcare providers and state and local health departments. Coronavirus disease 2019 (COVID-19) is a virus that causes a respiratory illness. It is caused by a coronavirus called 2019 novel coronavirus (2019- nCoV). There are many types of coronavirus. Coronaviruses are a very common cause of bronchitis. They may sometimes cause lung infection(pneumonia). Symptoms can range from mild to severe respiratory illness. These viruses are also foundin some animals. COVID-19 was first found in people in [facility], in late 2019. In 2020, several cases of COVID-19 have been confirmed in the [place] Public health officials are working to find the source. How the virus spreads is not yet fully known. It may be spread through droplets of fluid that a person coughs or sneezes into the air. It may be spread if you touch a surface with virus on it, such as a handle or object, and then touch your mouth. What are the symptoms of COVID-19? Some people have no symptoms or mild symptoms. Symptoms may appear 2 to 14 days after contact with the virus. Symptoms can include: Fever Coughing Trouble breathing What are possible complications from COVID-19? In many cases, this virus can cause infection (pneumonia) in both lungs. In some cases, this can cause . How is COVID-19 diagnosed? Your healthcare provider will ask about your symptoms. He or she will also ask about your recent travel and contact with sick people. Testing for the virus is only done through the [facility]. If yourhealthcare provider thinks you may have COVID- 19, he or she will work with your local health department and the CDC on testing. Follow all instructions from your healthcare provider. COVID-19 is diagnosed by: Nasal and throat swab. A cotton-tipped swab is wiped inside your nose or throat. This is done to check for viruses in your nasal mucus. Sputum culture. A small sample of mucus coughed from your lungs (sputum) is collected if you have a cough. It is checked for the virus. How is COVID-19 treated? There is currently no medicine to treat the virus. Treatment is done to help your body while it fights the virus. This is known as supportive care. Supportive care may include: Pain medicine. These include acetaminophen and ibuprofen. They are used to help ease pain and reduce fever. Bed rest. This helps your body fight the illness. For severe illness, you may need to stay in the hospital. Care during severe illness may include: IV (intravenous) fluids.These are given through a vein to help keep your body hydrated. Oxygen. Supplemental oxygen or ventilation with a breathing machine (ventilator) may be given. This is done to keep enough oxygen in your body. Are you at risk for COVID-19? If youve been to a place where people have been sick with this virus, you are at risk for infection. You are at risk if you: Recently traveled to an affected area Had contact with a sick person who recently traveled to this area Had contact with a person who was diagnosed with COVID-19 How can COVID-19 be prevented? There is no vaccine yet. The best prevention is to not have contact with the virus. The CDC advises that people should not travel to areas where there are COVID-19 outbreaks right now for any reason that is not urgent. To help prevent spreading the infection, wash your hands often, or use an alcohol-basedhand supervisor shed workers. If you are in an area with COVID-19: Wash your hands often. Or use an alcohol-based hand supervisor shed workers often. Only touch your eyes, nose, or mouth with clean hands. Dont have contact with people who are sick. Follow local instructions about being in public. For example, you may be told to not use public transport for a period of time. Stay away from markets that have live or animals. Wash your hands after touching any animals. Don't touch animals that may be sick. Dont share eating or drinking tools with sick people. Dont kiss someone who is sick. Clean surfaces often with disinfectant. If you were in an area with COVID-19 in the last 14 days: Call your healthcare provider. He or she can talk with local health staff to see what action may be needed. Follow all instructions from your provider. Take your temperature every morning and evening for at least 14 days. This is to check for fever. Keep a record of the readings. Keep watch for symptoms of the virus. Tell your provider right away if you have symptoms. If you were in an area with COVID-19 and have a fever or other symptoms: Dont panic. Keep in mind that other illnesses can cause similar symptoms. Stay away from work, school, and public places. Limit physical contact with family members. Don't kiss anyone or share eating or drinking utensils. Clean surfaces you touch with disinfectant. This is to help prevent the virus from spreading. Call your healthcare provider. Explain that you have been exposed to COVID-19 and have symptoms. Do this before going to any hospital. Wait for instructions. Keep in mind that healthcare staff may wear protective equipment such as masks, gowns, gloves, and eye protection. You may be put in a separate room. This is to prevent the possible virus from spreading. Tell the healthcare staff about recent travel. This includes local travel on public transport. Staff may need to find other people you have been in contact with. Follow all instructions the healthcare staff give you. If you have been diagnosed with COVID-19 Follow all instructions from your healthcare provider. Dont leave your home, except to get medical care. Call your healthcare providers office before going. They can prepare and give you instructions. This will help prevent the virus from spreading. Dont go to work, school, or public areas. Dont use public transport or taxis. Stay away from other people in your home. Have them wear face masks around you. Dont share household items or food. Wear a face mask if you can. This includes at home or in a medical facility. Cover your face with a tissue when you cough or sneeze. Throw the tissue away. Wash your hands. Wash your hands often. Caregivers should: Follow all instructions from healthcare staff. Wear a face mask and protective clothing as advised. Wash hands often. Keep track of the sick persons symptoms. Clean surfaces, fabrics, and laundry thoroughly. Keep other people away from the sick person. When to call your healthcare provider Call your healthcare provider: If youve recently traveled and have symptoms If you have been diagnosed with COVID-19 and your symptoms are worse To learn more To find out more about COVID-19, visit the CDC website at www.cdc.gov/coronavirus/2019-ncov/index.html. [employer]. [address] [place] [address], [place] [address]. All rights reserved. This information is not intended as a substitute for professional medical care. Always follow your healthcare professional's instructions. This information has been adapted from [employer] Pending Studies at Discharge: No Stand-Alone Forms: My [facility] [employer], Smoking Cessation Medications and DC Order Prescriptions: New Eliquis 5 mg Tablet 5 mg PO BID Qty: 74 RF: 1 Continued pravastatin 40 mg tablet 40 mg PO DAILY RF: 0 lisinopril 20 mg tablet 40 mg PO DAILY RF: 0 sildenafil 100 mg tablet 100 mg PO DAILY PRN (Reason: Erectile Dysfunction) RF: 0 famotidine 20 mg tablet 20 - 40 mg PO HS RF: 0 benzonatate 100 mg capsule 100 mg PO TID PRN (Reason: Cough) RF: 0 diphenhydramine HCl [ZzzQuil] 25 mg Capsule 25 mg PO DIRECTED PRN (Reason: SLEEP/COUGH) RF: 0 hydrochlorothiazide 12.5 mg tablet 12.5 mg PO Q OTHER DAY RF: 0 Discharge Orders: Discharge Order (Routine); Ordered 09/03/21 Ordered By: Ignacio Baum/Other Patient Handouts: Preventing Deep Vein Thrombosis Admission Data Admit Date/Time: 09/01/21 19:39 Attending Provider: Ignacio Quintero Admit Provider: Boris Arana Primary Care Provider: Dilshad Mejia Other Providers: Makayla Mccrary I. Other Interventions: Discharge Summary Assessment (RN) Last Done: 09/03/21 11:21
--- NOTE | 2021-09-03 17:58 | Electrocardiogram Report ---
Test Reason : Blood Pressure : / mmHG Vent. Rate : 080 BPM Atrial Rate : 080 BPM P-R Int : 176 ms QRS Dur : 086 ms QT Int : 380 ms P-R-T Axes : 016 004 005 degrees QTc Int : 438 ms Sinus rhythm with Premature supraventricular complexes and with occasional Premature ventricular comp lexes Otherwise normal ECG When compared with ECG of 01-SEP-2021 16:02, Premature ventricular complexes are now Present Premature supraventricular complexes are now Present Confirmed by Robin Alonzo ([id number]) on 09/03/2021 5:58:38 PM Referred By: Dilshad Mejia Confirmed By:Domingo Alonzo
--- NOTE | 2021-09-12 15:27 | Coding Query ---
CODING QUERY To promote full compliance with coding requirements relating to patient care, provider participation is requested in all cases of knuckle strap sewer uncertainty. Please assist us with the question(s) below: Coding Question(s): Pulmonary Embolism is documented, with documentation on Progress Note 09/02 of, "Based on patient history of progressive worsening shortness of breath with exertion shortly after patient's Covid vaccine worsening over time till now, VTE associated with COVID 19 vaccine cannot be ruled out. However, patient currently has COVID-19 infection PE may also be related to that". Please specify below, in your clinical opinion, regarding the most likely etiology of the Pulmonary Embolism. ( x ) most likely due to COVID-19 infection ( ) most likely due to the Vaccine - the COVID-19 Vaccine and NOT due to COVID- 19 infection ( ) most likely due to Both Covid-19 and/or the COVID-19 Vaccine equally ( ) Other: Please Specify Physician's Response(s): Thank you Felisa Tony Principal Diagnosis: "that condition established after study, to be chiefly responsible for occasioning the admission of the patient to the hospital for care." Co-Existing Principal Diagnosis: "when two or more diagnoses equally meet the criteria for principal diagnosis as determined by the circumstances of admission, diagnostic work up, and/or therapy provided, and the Alphabetic Index, Tabular List, or another coding guideline does not provide sequencing direction, any one of the diagnoses may be sequenced first." "When the physician has documented what appears to be a current diagnosis in the body of the record, but has not included the diagnosis in the final diagnostic statement, the physician should be asked whether the diagnosis should be added." (Source Coding Clinic 2 QTR90. p3-4) [facility]
== END 2021-09-03 14:26 | disposition home or self-care (01) | DRG 177 ==
LOC: ED 14:52 → 2E 19:39 → SUATTDRO 19:39 → 2E 20:51

== ENCOUNTER 2023-08-07 09:55 | Inpatient (IN) ==
[2023-08-07 10:30] LABS: Basophils # (auto) 0.05 K/uL (0.00-0.20); Basophils % (auto) 0.8 %; Eosinophils # (auto) 0.13 K/uL (0.00-0.50); Hematocrit (blood only) 44.1 % (42.0-52.0); Hemoglobin 15.1 g/dl (14.0-18.0); Immature Granulocytes # (auto) 0.03 K/uL (0.01-0.20); Immature Granulocytes % (auto) 0.5 %; Lymphocytes # (auto) 1.21 K/uL (1.20-3.40); Lymphocytes % (auto) 18.8 %; Mean Corpuscular Hemoglobin 29.6 pg (25.0-34.0); Mean Corpuscular Hgb Conc 34.2 g/dL (32.0-36.0); Mean Corpuscular Volume 86.5 fL (80.0-100.0); Mean Platelet Volume 10.2 fL (9.4-12.4); Monocytes # (auto) 0.77 K/uL (0.11-0.59); Neutrophils # (auto) 4.25 K/uL (1.40-6.50); Neutrophils % (auto) 65.9 %; Platelet Count 200 K/uL (130-400); RDW Coefficient of Variation 13.4 % (11.5-14.5); RDW Standard Deviation 42.4 fL (36.4-46.3); White Blood Count 6.44 K/ul (4.8-10.8)
--- NOTE | 2023-08-07 10:34 | Emergency Department Note ---
History of Present Illness General Chief complaint: Referred by Doctor Stated complaint: D DIMER IS HIGH, REFERRED BY RIGO VEGA Time Seen by Provider: 08/07/23 10:16 Source: patient, family ( was at the bedside), RN notes reviewed and old records reviewed (I have reviewed records from [facility] which the patient pulled up on the portal) Mode of arrival: ambulatory Limitations: no limitations History of Present Illness This patient is a 72-year-old male who comes in after having dyspnea on exertion for about the last month. He said that he golfs and usually walks 14 holes without difficulty then he noticed he was down to 9 and then this past week he walked 1-1/2 and got very short of breath while doing so he had to sit down. No diaphoresis or syncope or chest pain. He saw his regular doctor and had elevated D-dimer this week and was recommended he follow-up and have a CT angiography. He tells me he did have a PE 2 years ago when he had COVID he is no longer on any anticoagulation. He is in no pain or swelling in his legs. He has seen cardiology and pulmonology this past year because since having COVID he is not has much pep as usual he said they both signed off on him any a stress test done on March 30 which was unremarkable. He also tells me he was started on a low-dose beta-kimberlee a month ago and his pulse was running low so it was cut in half. Home Medications Medication Instructions Recorded Confirmed Type diphenhydramine HCl 25 mg capsule 25 mg PO DIRECTED PRN 09/01/21 08/07/23 History (ZzzQuil) SLEEP/COUGH famotidine 20 mg tablet 20 mg PO HS 09/01/21 08/07/23 History hydrochlorothiazide 12.5 mg tablet 12.5 mg PO DAILY 09/01/21 08/07/23 History lisinopril 20 mg tablet 40 mg PO DAILY 09/01/21 08/07/23 History pravastatin 40 mg tablet 40 mg PO DAILY 09/01/21 08/07/23 History sildenafil 100 mg tablet 100 mg PO DAILY PRN Erectile 09/01/21 08/07/23 History Dysfunction metformin 500 mg tablet,extended 250 mg PO DAILY 08/07/23 08/07/23 History release 24 hr metoprolol succinate 25 mg 12.5 mg PO DAILY 08/07/23 08/07/23 History tablet,extended release 24 hr Allergies Allergy/AdvReac Type Severity Reaction Status Date / Time FROG LEGS Allergy Severe Anaphylaxis Uncoded 09/01/21 16:49 Past Med/Surg History Medical History (Updated 08/07/23 @ 14:10 by Ludmila Maldonado PA-C) Acquired coagulation factor deficiency DM (diabetes mellitus), type 2 Dyslipidemia Erectile dysfunction GERD (gastroesophageal reflux disease) HTN (hypertension) Surgical History History of hernia repair Family History Father Lung cancer Former smoker, asbestos exposure Denies family history of Clotting disorder Social History Smoking Status: Former smoker Second Hand Exposure: No; Do You Dip or Chew Tobacco: No; Tobacco Cessation Education Requested by Patient: No Hx Alcohol Use: No Hx Substance Use: No Preferred Language: Gibraltarian Communication Ability: Effective Joint Cutter Machine Required: No Beliefs That Will Affect Care: None Current Living Situation: Spouse Other Information That Helps Us Care for You: No Feels Safe at Home: Yes Assistive Devices: None Review of Systems A total of 10 systems reviewed and were otherwise negative Physical Exam Vital Signs Vital Signs - 24 hr 08/07/23 10:01 08/07/23 10:14 08/07/23 10:10 Temperature 36.5 C Temperature Source Oral Pulse Rate 98 H 103 H Pulse Rate [Left Apical] Pulse Rhythm Respiratory Rate 20 Blood Pressure 156/104 H Blood Pressure [Right Arm] Blood Pressure Mean 121 Blood Pressure Mean [Right Arm] Blood Pressure Position Sitting Pulse Oximetry 100 93 Oxygen Delivery Method Room Air Room Air Sepsis Recent Fever Within 48 Hours No Sepsis New/Unexplained Change in Mental Status No Sepsis Action Taken by Nursing No Action Required 08/07/23 10:10 08/07/23 11:32 08/07/23 12:00 Temperature Temperature Source Pulse Rate 92 H 86 Pulse Rate [Left Apical] 86 Pulse Rhythm Regular Respiratory Rate 22 27 H 29 H Blood Pressure 136/95 Blood Pressure [Right Arm] 158/107 H Blood Pressure Mean 108 Blood Pressure Mean [Right Arm] 124 Blood Pressure Position Pulse Oximetry 93 92 92 Oxygen Delivery Method Room Air Room Air Room Air Sepsis Recent Fever Within 48 Hours Sepsis New/Unexplained Change in Mental Status Sepsis Action Taken by Nursing 08/07/23 10:15 Temperature Temperature Source Pulse Rate 103 H Pulse Rate [Left Apical] Pulse Rhythm Respiratory Rate Blood Pressure Blood Pressure [Right Arm] Blood Pressure Mean Blood Pressure Mean [Right Arm] Blood Pressure Position Pulse Oximetry Oxygen Delivery Method Sepsis Recent Fever Within 48 Hours Sepsis New/Unexplained Change in Mental Status Sepsis Action Taken by Nursing General: Well developed well nourished asymptomatic older male who appears in no acute distress, breathing comfortably on room air. Normal speech HEENT: Normal cephalic atraumatic. Pupils are equal round and reactive to light. Extraocular movements are intact. Oropharynx is pink with moist mucous membranes. No swelling of the mouth lips or tongue. Neck: Supple with a midline trachea. No meningeal signs or stiffness, no JVD or bruits. No Stridor. Chest: Clear to auscultation bilaterally. No wheezes or rhonchi. No increased work of breathing. Heart: Regular rate and rhythm without murmurs or gallops. Abdomen: Soft nontender, nondistended without rebound guarding or rigidity. Extremities: No cyanosis clubbing or edema. No calf tenderness or assymetry Spine/Back. Non tender to palpation. No CVA tenderness Skin: Good turgor without rashes. Neurologic exam: Cranial nerves two through 12 are intact. Motor and sensation are intact and symmetrical throughout. Course Administered Medications Heparin Sodium/Dextrose (Heparin Sodium/Dextrose) 25,000 units in 500 mls @ 32 mls/hr IV .[id number] [facility], [facility]; Protocol Stop: 09/06/23 11:59 Last Admin: 08/07/23 12:33 Dose: 1,600 units/hr, 32 mls/hr Documented By: LINDA Co-signed By: ESEQUIEL Discontinued Medications Heparin Sodium (Porcine) (Heparin Sod (Porcine) 1000 Unit/Ml) 7,000 units IV NOW ONE Stop: 08/07/23 12:01 Last Admin: 08/07/23 12:34 Dose: 7,000 units Documented By: LINDA Co-signed By: ESEQUIEL Ioversol (Ioversol 350 Mg 125ml Prefilled Syringe) 100 ml IV ONCE ONE Stop: 08/07/23 11:10 Last Admin: 08/07/23 11:10 Dose: 100 ml Documented By: JOSE JUAN Medical Decision Making Differential Diagnosis PE, CHF, electrolyte or metabolic abnormality, medication side effect, acute coronary syndrome, infection Medical Records Attestation: I reviewed the patient's medical records. Home Medications Current Medication List: was personally reviewed by me Laboratory Data Attestation: I reviewed the patient's lab results. n 08/07/23 10:11 08/07/23 10:11 Lab Results 08/07/23 08/07/23 08/07/23 Range/Units 10:11 10:11 10:11 WBC 6.44 (4.8-10.8) K/ul RBC 5.10 (4.70-6.10) M/uL Hgb 15.1 (14.0-18.0) g/dl Hct 44.1 (42.0-52.0) % MCV 86.5 (80.0-100.0) fL MCH 29.6 (25.0-34.0) pg MCHC 34.2 (32.0-36.0) g/dL RDW Std Deviation 42.4 (36.4-46.3) fL RDW Coeff of Tawny 13.4 (11.5-14.5) % Plt Count 200 (130-400) K/uL MPV 10.2 (9.4-12.4) fL Immature Gran % (Auto) 0.5 % Neut % (Auto) 65.9 % Lymph % (Auto) 18.8 % [place] % (Auto) 12.0 % Eos % (Auto) 2.0 % Baso % (Auto) 0.8 % Neut # (Auto) 4.25 (1.40-6.50) K/uL Lymph # (Auto) 1.21 (1.20-3.40) K/uL [place] # (Auto) 0.77 H (0.11-0.59) K/uL Eos # (Auto) 0.13 (0.00-0.50) K/uL Baso # (Auto) 0.05 (0.00-0.20) K/uL Immature Gran # (Auto) 0.03 (0.01-0.20) K/uL PT 11.0 (9.0-12.0) Seconds INR 1.0 (0.9-1.1) APTT 27.5 (21.0-31.0) Seconds PTT Ratio 1.0 Sodium 136 (136-145) mmol/L Potassium 4.1 (3.5-5.1) mmol/L Chloride 104 (98-107) mmol/L Carbon Dioxide 23 (21-32) mmol/L Anion Gap 9 (3-11) BUN 20 (6-23) mg/dl Creatinine 1.31 (0.6-1.4) mg/dl Est Cr Clr Drug Dosing 65.8 ml/min Est GFR ( Amer) 63.5 ml/min Est GFR (Non-Af Amer) 54.8 ml/min BUN/Creatinine Ratio 15.3 (10-20) Glucose 157 H (70-99(Fasting)) mg/dl Calcium 9.2 (8.6-10.3) mg/dl Total Bilirubin 1.1 H (0.2-1.0) mg/dl AST 18 (13-39) U/L ALT 21 (7-52) U/L Alkaline Phosphatase 54 (34-104) U/L Troponin I High Sens 33.5 H (0-20) pg/ml B-Natriuretic Peptide (0-100) pg/ml Total Protein 8.1 (6.0-8.3) gm/dl Albumin 4.1 (3.4-5.0) gm/dl Globulin 4.0 (2.5-4.0) gm/dl Albumin/Globulin Ratio 1.0 (0.9-2) TSH (0.300-4.500) uIu/ml SARS-CoV-2 (PCR) (Negative) 08/07/23 08/07/23 08/07/23 Range/Units 10:11 10:11 11:15 WBC (4.8-10.8) K/ul RBC (4.70-6.10) M/uL Hgb (14.0-18.0) g/dl Hct (42.0-52.0) % MCV (80.0-100.0) fL MCH (25.0-34.0) pg MCHC (32.0-36.0) g/dL RDW Std Deviation (36.4-46.3) fL RDW Coeff of Tawny (11.5-14.5) % Plt Count (130-400) K/uL MPV (9.4-12.4) fL Immature Gran % (Auto) % Neut % (Auto) % Lymph % (Auto) % [place] % (Auto) % Eos % (Auto) % Baso % (Auto) % Neut # (Auto) (1.40-6.50) K/uL Lymph # (Auto) (1.20-3.40) K/uL [place] # (Auto) (0.11-0.59) K/uL Eos # (Auto) (0.00-0.50) K/uL Baso # (Auto) (0.00-0.20) K/uL Immature Gran # (Auto) (0.01-0.20) K/uL PT (9.0-12.0) Seconds INR (0.9-1.1) APTT (21.0-31.0) Seconds PTT Ratio Sodium (136-145) mmol/L Potassium (3.5-5.1) mmol/L Chloride (98-107) mmol/L Carbon Dioxide (21-32) mmol/L Anion Gap (3-11) BUN (6-23) mg/dl Creatinine (0.6-1.4) mg/dl Est Cr Clr Drug Dosing ml/min Est GFR ( Amer) ml/min Est GFR (Non-Af Amer) ml/min BUN/Creatinine Ratio (10-20) Glucose (70-99(Fasting)) mg/dl Calcium (8.6-10.3) mg/dl Total Bilirubin (0.2-1.0) mg/dl AST (13-39) U/L ALT (7-52) U/L Alkaline Phosphatase (34-104) U/L Troponin I High Sens (0-20) pg/ml B-Natriuretic Peptide 477 H (0-100) pg/ml Total Protein (6.0-8.3) gm/dl Albumin (3.4-5.0) gm/dl Globulin (2.5-4.0) gm/dl Albumin/Globulin Ratio (0.9-2) TSH 2.522 (0.300-4.500) uIu/ml SARS-CoV-2 (PCR) NEGATIVE (Negative) 08/07/23 Range/Units 11:57 WBC (4.8-10.8) K/ul RBC (4.70-6.10) M/uL Hgb (14.0-18.0) g/dl Hct (42.0-52.0) % MCV (80.0-100.0) fL MCH (25.0-34.0) pg MCHC (32.0-36.0) g/dL RDW Std Deviation (36.4-46.3) fL RDW Coeff of Tawny (11.5-14.5) % Plt Count (130-400) K/uL MPV (9.4-12.4) fL Immature Gran % (Auto) % Neut % (Auto) % Lymph % (Auto) % [place] % (Auto) % Eos % (Auto) % Baso % (Auto) % Neut # (Auto) (1.40-6.50) K/uL Lymph # (Auto) (1.20-3.40) K/uL [place] # (Auto) (0.11-0.59) K/uL Eos # (Auto) (0.00-0.50) K/uL Baso # (Auto) (0.00-0.20) K/uL Immature Gran # (Auto) (0.01-0.20) K/uL PT (9.0-12.0) Seconds INR (0.9-1.1) APTT (21.0-31.0) Seconds PTT Ratio Sodium (136-145) mmol/L Potassium (3.5-5.1) mmol/L Chloride (98-107) mmol/L Carbon Dioxide (21-32) mmol/L Anion Gap (3-11) BUN (6-23) mg/dl Creatinine (0.6-1.4) mg/dl Est Cr Clr Drug Dosing ml/min Est GFR ( Amer) ml/min Est GFR (Non-Af Amer) ml/min BUN/Creatinine Ratio (10-20) Glucose (70-99(Fasting)) mg/dl Calcium (8.6-10.3) mg/dl Total Bilirubin (0.2-1.0) mg/dl AST (13-39) U/L ALT (7-52) U/L Alkaline Phosphatase (34-104) U/L Troponin I High Sens 34.9 H (0-20) pg/ml B-Natriuretic Peptide (0-100) pg/ml Total Protein (6.0-8.3) gm/dl Albumin (3.4-5.0) gm/dl Globulin (2.5-4.0) gm/dl Albumin/Globulin Ratio (0.9-2) TSH (0.300-4.500) uIu/ml SARS-CoV-2 (PCR) (Negative) Imaging Data Attestation: I personally reviewed and interpreted this imaging study as cesar quevedo: My Impression: Chest x-ray-no acute infiltrate, failure, pneumothorax seen. CT angio of the chest/PE studythere is bilateral PEs with large clot burden but no saddle emboli Radiologist's Impression: Chest X-Ray 08/07/23 10:08 SINGLE VIEW CHEST CLINICAL HISTORY: Atypical chest pain FINDINGS: An AP upright chest radiograph is correlated with chest CT dated 03/10/2023. There is a large hiatal hernia appear The heart is enlarged. The pulmonary vasculature is noncongested. Chronic interstitial thickening similar to previous. There is bibasilar scarring/atelectasis. The lungs and pleural spaces are otherwise clear. No pneumothorax is seen. The skeletal structures are osteopenic. There are chronic/healed left-sided rib fractures. IMPRESSION: 1. Cardiomegaly with no active disease in the chest. 2. Large hiatal hernia. ACT 112: Negative or not required by law. Electronically signed by: Rahat Jacobson M.D. 08/07/2023 10:37 AM Chest CTA 08/07/23 10:26 CT ANGIOGRAM OF THE CHEST CLINICAL HISTORY: Dyspnea. Atypical chest pain. Elevated d-dimer. COMPARISON STUDY: Chest x-ray dated . Chest CT dated 03/10/2023. TECHNIQUE: Following the IV administration of 100 cc of Optiray 350, CT bryant ogram of the chest was performed from the upper abdomen to the thoracic inlet utilizing the pulmonary embolus protocol. Images are reviewed in the axial, sagittal, and coronal planes. 3-D MIPS images are created and assessed. IV contrast was administered without complication. A dose lowering technique was utilized adhering to the principles of ALARA. CT DOSE: 885.82 mGy.cm FINDINGS: Thyroid: Imaged portions of the thyroid gland are normal in size and attenuation. Thoracic aorta: There is mild aneurysmal dilatation of the ascending thoracic aorta which measures up to 4.1 cm in diameter. The remainder of the thoracic aorta is normal in caliber comment the arch demonstrates standard 3-vessel anatomy. The thoracic aorta is not well opacified. Pulmonary vasculature: The pulmonary trunk is dilated, measuring 4.6 cm in diameter. This suggests pulmonary artery hypertension. There is extensive high lateral pulmonary embolus. There is thrombus throughout the right main pulmonary artery. This extends into the right upper, middle, and lower lobe pulmonary arteries and segmental and subsegmental branches. There is thrombus within the distal left main pulmonary artery which extends into the left lower lobe pulmonary artery into segmental and subsegmental branches. There are segmental and subsegmental pulmonary emboli within branches of the left upper lobe and l ingular pulmonary arteries. Heart: The heart is enlarged and without pericardial effusion. There are coronary artery calcifications. Lungs and pleural spaces: Evaluation of the lung parenchyma is degraded by motion artifact. Mild emphysematous change is observed. The trachea and central airways are clear. Scarring/atelectasis is noted at both lung bases. There is no airspace consolidation typical for pneumonia or pleural effusion. Mediastinum: There is no mediastinal lymphadenopathy. Britt: Clear. Axillae: There is no axillary lymphadenopathy. Upper abdomen: There is a large hiatal hernia. Partially visualized upper abdominal viscera is within normal limits. Skeletal structures: The skeletal structures are osteopenic. No lytic or blastic bony lesions are seen. Degenerative change is noted in the shoulders and spine. IMPRESSION: 1. Extensive bilateral pulmonary embolus as above. 2. Cardiomegaly and mild emphysema. 3. There is no airspace consolidation typical for pneumonia or pleural effusion. 4. Large hiatal hernia. 5. Additional findings as above. ACT 112: Negative or not required by law. Electronically signed by: Rahat Jacobson M.D. 08/07/2023 11:30 AM ECG Data Attestation: I personally reviewed and interpreted this ECG as follows: Indication: + SOB/dyspnea Rate (beats per minute): 95 Rhythm: + normal sinus ECG Intervals/blocks: + Normal QRS and + Prolonged QT ECG [place]: + Normal ECG ST segments: + Normal ST segments ECG Findings: + Other Comparison ECG Date: from (09/12/21) Change: the following changes noted (T wave inversions in V3 and V4 as well as aVF and lead II which are all new compared to 09/12/2021 EKG) MDM Narrative This patient is a 72-year-old male who comes in after having dyspnea on exertion has increased over the last month he has an elevated D-dimer he does have history of PEs he is on no anticoagulant chelation at present. IV access was established blood work was obtained including EKG and chest x-ray. I did look at his outpatient labs and his D-dimer was significantly elevated at equivalent of over 6000 on our scale. I did order CT angiography of the chest. He is also been on a beta-kimberlee which may have caused some of his symptoms with exercise intolerance as well. He tells me has had a stress test done on March 30 which was unremarkable which would make acute cardiac event/coronary syndrome less likely. Multiple blood testing was obtained he was reassessed. His EKG does have some changes which are common with PE. His troponin was also mildly elevated but has no chest pain is likely related to his PE. CAT scan angiography of the chest shows bilateral PEs with large clot burden. In light of this I did order hepa rin IV bolus and rate with her standard protocol he will need to be admitted for further anticoagulation. Despite having a large clot burden he looks well and is hemodynamically stable. He is in no distress at rest. I did consult the [facility] hospitalist to see him in ER for these measures. Continuous cardiac monitoring: Orders placed in EMR for continuous cardiac monitoring: Upon my evaluation patient noted to be in normal sinus rhythm rate of 95 Impression & Plan Bilateral pulmonary embolism, STRONG (dyspnea on exertion), HTN (hypertension), DM (diabetes mellitus), type 2 Discharge Plan Visit Data Chief Complaint: Referred by Doctor Stated Complaint: D DIMER IS HIGH, REFERRED BY RIGO VEGA ED Provider: Kris Mendosa Discharge Problem: Bilateral pulmonary embolism, STRONG (dyspnea on exertion), HTN (hypertension), DM (diabetes mellitus), type 2 Patient Disposition: Admitted As Inpatient Discharge Instructions Interventions: ED Discharge Assessment Last Done: 08/07/23 12:38
--- NOTE | 2023-08-07 10:38 | XRay Report ---
SINGLE VIEW CHEST CLINICAL HISTORY: Atypical chest pain FINDINGS: An AP upright chest radiograph is correlated with chest CT dated 03/10/2023. There is a larg e hiatal hernia appear The heart is enlarged. The pulmonary vasculature is noncongested. Chronic inte rstitial thickening similar to previous. There is bibasilar scarring/atelectasis. The lungs and pleur al spaces are otherwise clear. No pneumothorax is seen. The skeletal structures are osteopenic. There are chronic/healed left-sided rib fractures. IMPRESSION: 1. Cardiomegaly with no active disease in the chest. 2. Large hiatal hernia. ACT 112: Negative or not required by law. Electronically signed by: Rahat Jacobson M.D. 08/07/2023 10:37 AM
[2023-08-07 10:48] LABS: Alanine Aminotransferase 21 U/L (7-52); Albumin Level 4.1 gm/dl (3.4-5.0); Alkaline Phosphatase 54 U/L (34-104); Anion Gap 9 (3-11); Aspartate Aminotransferase 18 U/L (13-39); BUN Creatinine Ratio 15.3 (10-20); Bilirubin,Total 1.1 mg/dl (0.2-1.0); Blood Urea Nitrogen 20 mg/dl (6-23); Calcium 9.2 mg/dl (8.6-10.3); Carbon Dioxide 23 mmol/L (21-32); Chloride 104 mmol/L (98-107); Creatinine Clr Calc Pharmacy 65.8 ml/min; Est GFR (African American) 63.5 ml/min; Est GFR (Non-African American) 54.8 ml/min; Glucose 157 mg/dl (70-99(Fasting)); Potassium 4.1 mmol/L (3.5-5.1); Sodium 136 mmol/L (136-145); Total Protein 8.1 gm/dl (6.0-8.3)
[2023-08-07 10:54] LABS: Partial Thromboplastin Time 27.5 Seconds (21.0-31.0)
[2023-08-07 10:55] LABS: Troponin I High Sensitivity 33.5 pg/ml (0-20)
[2023-08-07] MEDS ORDERED: IOVERSOL 350 MG 125mL Prefilled Syringe IV ONE (11:09)
--- NOTE | 2023-08-07 11:27 | Electrocardiogram Report ---
Test Reason : Blood Pressure : / mmHG Vent. Rate : 095 BPM Atrial Rate : 095 BPM P-R Int : 182 ms QRS Dur : 082 ms QT Int : 400 ms P-R-T Axes : 011 008 -26 degrees QTc Int : 502 ms Sinus rhythm with occasional Premature ventricular complexes and Fusion complexes T wave abnormality, consider inferior ischemia T wave abnormality, consider anterior ischemia Prolonged QT Abnormal ECG When compared with ECG of 02-SEP-2021 05:59, Fusion complexes are now Present Premature supraventricular complexes are no longer Present T wave inversion now evident in Anterior leads QT has lengthened Confirmed by Oren Dias ([id number]) on 08/07/2023 11:26:38 AM Referred By: Dilshad Mejia Confirmed By:Oren Dias
--- NOTE | 2023-08-07 11:32 | CT Scan Report ---
CT ANGIOGRAM OF THE CHEST CLINICAL HISTORY: Dyspnea. Atypical chest pain. Elevated d-dimer. COMPARISON STUDY: Chest x-ray dated . Chest CT dated 03/10/2023. TECHNIQUE: Following the IV administration of 100 cc of Optiray 350, CT angiogram of the chest was pe rformed from the upper abdomen to the thoracic inlet utilizing the pulmonary embolus protocol. Images are reviewed in the axial, sagittal, and coronal planes. 3-D MIPS images are created and assessed. I V contrast was administered without complication. A dose lowering technique was utilized adhering to the principles of ALARA. CT DOSE: 885.82 mGy.cm FINDINGS: Thyroid: Imaged portions of the thyroid gland are normal in size and attenuation. Thoracic aorta: There is mild aneurysmal dilatation of the ascending thoracic aorta which measures up to 4.1 cm in diameter. The remainder of the thoracic aorta is normal in caliber comment the arch dem onstrates standard 3-vessel anatomy. The thoracic aorta is not well opacified. Pulmonary vasculature: The pulmonary trunk is dilated, measuring 4.6 cm in diameter. This suggests pu lmonary artery hypertension. There is extensive high lateral pulmonary embolus. There is thrombus thr oughout the right main pulmonary artery. This extends into the right upper, middle, and lower lobe pu lmonary arteries and segmental and subsegmental branches. There is thrombus within the distal left ma in pulmonary artery which extends into the left lower lobe pulmonary artery into segmental and subseg mental branches. There are segmental and subsegmental pulmonary emboli within branches of the left up per lobe and lingular pulmonary arteries. Heart: The heart is enlarged and without pericardial effusion. There are coronary artery calcificatio ns. Lungs and pleural spaces: Evaluation of the lung parenchyma is degraded by motion artifact. Mild emph ysematous change is observed. The trachea and central airways are clear. Scarring/atelectasis is note d at both lung bases. There is no airspace consolidation typical for pneumonia or pleural effusion. Mediastinum: There is no mediastinal lymphadenopathy. Britt: Clear. Axillae: There is no axillary lymphadenopathy. Upper abdomen: There is a large hiatal hernia. Partially visualized upper abdominal viscera is within normal limits. Skeletal structures: The skeletal structures are osteopenic. No lytic or blastic bony lesions are see n. Degenerative change is noted in the shoulders and spine. IMPRESSION: 1. Extensive bilateral pulmonary embolus as above. 2. Cardiomegaly and mild emphysema. 3. There is no airspace consolidation typical for pneumonia or pleural effusion. 4. Large hiatal hernia. 5. Additional findings as above. ACT 112: Negative or not required by law. Electronically signed by: Rahat Jacobson M.D. 08/07/2023 11:30 AM
[2023-08-07] MEDS ORDERED: Heparin IV Adult Wt-Based Standard WITH Bolus Protocol IV STA (11:35)
[2023-08-07] MEDS ORDERED: HEPARIN SOD (PORCINE) 1000 UNIT/ML IV ONE ×2 (11:50→12:00)
--- NOTE | 2023-08-07 12:00 | History & Physical Report ---
Date of Service August 07, 2023 Assessment & Plan (1) Bilateral pulmonary embolism: Plan: This is a 72-year-old male with PMH of type 2 diabetes, dyslipidemia, history of bilateral PEs in August 2021, recently diagnosed nocturnal hypoxia noncompliant with supplemental oxygen, and other medical problems listed below who presents from outpatient setting with abnormal lab work and SOB and was found to have bilateral PEs. Acute on chronic SOB, worsening over past 6 months but significantly worse over past few days, intermittent palpitations Outpatient d-dimer elevated, directed to ED for further evaluation Hemodynamically stable, O2 96% on room air, HS trop 30 CTA chest with extensive bilateral pulmonary embolus. No evidence of heart strain noted on CTA Started on IV heparin in ED, consider transiton to oral anticoagulant tomorrow Pulmonary consult given extensive nature of PE - Dr. Bai recommends lifelong anticoagulation given this second PE event Resting echo to evaluate for heart strain Trend troponin, monitor on telemetry, supplemental O2, monitor for hemodynamic stability (2) Nocturnal hypoxia: Plan: Seen by pulm for 6 months of dyspnea on exertion, underwent nocturnal pulseox study and found to be hypoxic Prescribed 2L NC O2 HS but has been non-compliant Due for PFTs next week, sleep study appt in Aug Will order nocturnal oximetry (3) HTN (hypertension): Plan: BP slightly elevated 143/96. Continue home Toprol, lisinopril, hctz (4) DM (diabetes mellitus), type 2: Plan: A1c 6.7 in February 2023, repeat in AM Hold home agents SSI while in-patient BSG AC HS (5) Dyslipidemia: Plan: Chronic, stable. Continue statin DVT Ppx: IV heparin Code status: CODE PCP: Hany Mejia Dispo: Admitted to PCU Patient seen in collaboration with Dr. Crawford. Please see addendum. History of Present Illness Chief Complaint: Abnormal lab work Primary Care Provider: Dilshad Mejia, This is a 72-year-old male with PMH of type 2 diabetes, dyslipidemia, history of bilateral PEs in August 2021, recently diagnosed nocturnal hypoxia noncompliant with supplemental oxygen, and other medical problems listed below who presents from outpatient setting with abnormal lab work and SOB. Has had progressively worsening shortness of breath over the past few days, which he noticed when golfing and felt short of breath after 2 holes of golf. Also felt short of breath crossing the street yesterday, prompting a visit to PCP. D-dimer is found to be elevated and patient was directed to ED for further evaluation. Has been less active over the past 6 months but is still going on weekly walks. No recent travel. Also endorses intermittent palpitations over the past 6 months, most notable at night. Does take NyQuil every night due to issues with insomnia. Saw pulmonology earlier this summer due to complaints of dyspnea on exertion of the past 6 months. Cunningham to be largely due to deconditioning but nocturnal pulse ox revealed hypoxia and patient prescribed 2 L O2 at bedtime which he has been noncompliant with due to finding the oxygen machine loud. Is scheduled for PFTs next week with pulmonology. History of blood clots in lungs in 2020 in the setting of covid. Had outpatient hypercoagulability labs at that time in Aug 2021 which showed abnormality with cardiolipin igm antibody. Was placed on Eliquis for 6 months and then it was discontinued in January 2022 with PEs attributed to covid infection. Denies any workup with hematology and cannot find in chart review. No known history of clotting disorders personally or in family. Remote smoking history. Patient with some conversational shortness of breath at rest but otherwise comfortable. Denies any recent infection, fever, chills, lightheadedness, chest pain, nausea, vomiting, abdominal pain, dysuria, diarrhea or constipation. Allergies Allergy/AdvReac Type Severity Reaction Status Date / Time FROG LEGS Allergy Severe Anaphylaxis Uncoded 09/01/21 16:49 Home Medications Medication Instructions Recorded Confirmed Type diphenhydramine HCl 25 mg capsule 25 mg PO DIRECTED PRN 09/01/21 08/07/23 History (ZzzQuil) SLEEP/COUGH famotidine 20 mg tablet 20 mg PO HS 09/01/21 08/07/23 History hydrochlorothiazide 12.5 mg tablet 12.5 mg PO DAILY 09/01/21 08/07/23 History lisinopril 20 mg tablet 40 mg PO DAILY 09/01/21 08/07/23 History pravastatin 40 mg tablet 40 mg PO DAILY 09/01/21 08/07/23 History sildenafil 100 mg tablet 100 mg PO DAILY PRN Erectile 09/01/21 08/07/23 History Dysfunction metformin 500 mg tablet,extended 250 mg PO DAILY 08/07/23 08/07/23 History release 24 hr metoprolol succinate 25 mg 12.5 mg PO DAILY 08/07/23 08/07/23 History tablet,extended release 24 hr Past Med/Surg History Medical History (Updated 08/07/23 @ 14:10 by Ludmila Maldonado PA-C) Acquired coagulation factor deficiency DM (diabetes mellitus), type 2 Dyslipidemia Erectile dysfunction GERD (gastroesophageal reflux disease) HTN (hypertension) Surgical History History of hernia repair Family History Father Lung cancer Former smoker, asbestos exposure Denies family history of Clotting disorder Social History Smoking Status: Former smoker Second Hand Exposure: No; Do You Dip or Chew Tobacco: No; Tobacco Cessation Education Requested by Patient: No Hx Alcohol Use: No Hx Substance Use: No Preferred Language: Setswana Communication Ability: Effective Screen Room Operator Required: No Beliefs That Will Affect Care: None Current Living Situation: Spouse Other Information That Helps Us Care for You: No Feels Safe at Home: Yes Assistive Devices: None Review of Systems Review of Systems: At least ten systems reviewed and negative except as noted in the HPI. Physical Exam Physical Exam: General Appearance: WD/WN, vitals as above, NAD, sitting up in bed, obese, + conversational dyspnea Head: normocephalic, atraumatic Eyes: normal inspection, PERRL, conjunctivae normal, anicteric sclerae ENT: external ear and nose normal, oropharynx normal Neck: normal visual inspection, trachea midline, no thyromegaly Respiratory: normal respiratory effort, lungs clear to auscultation, no wheeze, rales, rhonchi. No accessory muscle use Cardiovascular: regular rate, rhythm, no murmur, normal peripheral pulses, no BLE edema. Vessels: no JVD Chest: normal inspection of chest Abdomen/GI: normal bowel sounds, soft, nontender, no hepatosplenomegaly Extremities/Musculoskeletal: no cyanosis or clubbing, extremities motor strength 5/5 Neurologic: PERRL, EOMI, accommodation nl, no face palsy, no dysarthria, CN's II-XI intact bilaterally and moves all extremities Psychiatric: A+Ox3, euthymic affect Skin: no rashes, normal color, warm/dry Results & Data Results & Data Vital Signs (Past 12 Hours) Vital Signs Temp Pulse Pulse Resp BP BP Pulse Ox 08/07/23 10:15 103 H 08/07/23 11:32 86 27 H 158/107 H 92 08/07/23 10:10 92 H 22 93 08/07/23 10:10 93 08/07/23 10:14 103 H 08/07/23 10:01 36.5 C 98 H 20 156/104 H 100 O2 Del Method 08/07/23 10:15 08/07/23 11:32 Room Air 08/07/23 10:10 Room Air 08/07/23 10:10 Room Air 08/07/23 10:14 08/07/23 10:01 Room Air Laboratory Results Short CBC 08/07/23 Range/Units 10:11 WBC 6.44 (4.8-10.8) K/ul Hgb 15.1 (14.0-18.0) g/dl Hct 44.1 (42.0-52.0) % Plt Count 200 (130-400) K/uL BMP 08/07/23 10:11 Sodium 136 Potassium 4.1 Chloride 104 Carbon Dioxide 23 BUN 20 Creatinine 1.31 Glucose 157 H Calcium 9.2 Liver Function 08/07/23 Range/Units 10:11 Total Bilirubin 1.1 H (0.2-1.0) mg/dl AST 18 (13-39) U/L ALT 21 (7-52) U/L Alkaline Phosphatase 54 (34-104) U/L Albumin 4.1 (3.4-5.0) gm/dl Diagnostic Findings Chest X-Ray 08/07/23 10:08 SINGLE VIEW CHEST CLINICAL HISTORY: Atypical chest pain FINDINGS: An AP upright chest radiograph is correlated with chest CT dated 03/10/2023. There is a large hiatal hernia appear The heart is enlarged. The pulmonary vasculature is noncongested. Chronic interstitial thickening similar to previous. There is bibasilar scarring/atelectasis. The lungs and pleural spaces are otherwise clear. No pneumothorax is seen. The skeletal structures are osteopenic. There are chronic/healed left-sided rib fractures. IMPRESSION: 1. Cardiomegaly with no active disease in the chest. 2. Large hiatal hernia. ACT 112: Negative or not required by law. Electronically signed by: Rahat Jacobson M.D. 08/07/2023 10:37 AM Chest CTA 08/07/23 10:26 CT ANGIOGRAM OF THE CHEST CLINICAL HISTORY: Dyspnea. Atypical chest pain. Elevated d-dimer. COMPARISON STUDY: Chest x-ray dated . Chest CT dated 03/10/2023. TECHNIQUE: Following the IV administration of 100 cc of Optiray 350, CT angiogram of the chest was performed from the upper abdomen to the thoracic inlet utilizing the pulmonary embolus protocol. Images are reviewed in the axial, sagittal, and coronal planes. 3-D MIPS images are created and assessed. IV contrast was administered without complication. A dose lowering technique was utilized adhering to the principles of ALARA. CT DOSE: 885.82 mGy.cm FINDINGS: Thyroid: Imaged portions of the thyroid gland are normal in size and attenuation. Thoracic aorta: There is mild aneurysmal dilatation of the ascending thoracic aorta which measures up to 4.1 cm in diameter. The remainder of the thoracic aorta is normal in caliber comment the arch demonstrates standard 3-vessel anatomy. The thoracic aorta is not well opacified. Pulmonary vasculature: The pulmonary trunk is dilated, measuring 4.6 cm in diameter. This suggests pulmonary artery hypertension. There is extensive high lateral pulmonary embolus. There is thrombus throughout the right main pulmonary artery. This extends into the right upper, middle, and lower lobe pulmonary arteries and segmental and subsegmental branches. There is thrombus within the distal left main pulmonary artery which extends into the left lower lobe pulmonary artery into segmental and subsegmental branches. There are segmental and subsegmental pulmonary emboli within branches of the left upper lobe and lingular pulmonary arteries. Heart: The heart is enlarged and without pericardial effusion. There are coronary artery calcifications. Lungs and pleural spaces: Evaluation of the lung parenchyma is degraded by motion artifact. Mild emphysematous change is observed. The trachea and central airways are clear. Scarring/atelectasis is noted at both lung bases. There is no airspace consolidation typical for pneumonia or pleural effusion. Mediastinum: There is no mediastinal lymphadenopathy. Britt: Clear. Axillae: There is no axillary lymphadenopathy. Upper abdomen: There is a large hiatal hernia. Partially visualized upper abdominal viscera is within normal limits. Skeletal structures: The skeletal structures are osteopenic. No lytic or blastic bony lesions are seen. Degenerative change is noted in the shoulders and spine. IMPRESSION: 1. Extensive bilateral pulmonary embolus as above. 2. Cardiomegaly and mild emphysema. 3. There is no airspace consolidation typical for pneumonia or pleural effusion. 4. Large hiatal hernia. 5. Additional findings as above. ACT 112: Negative or not required by law. Electronically signed by: Rahat Jacobson M.D. 08/07/2023 11:30 AM ECG Additional Comments: EKG reviewed with sinus rhythm with occasional Premature ventricular complexes and Fusion complexes, T wave abnormalities in inferior leads, prolonged QT Supervising Physician Co-Signing Physician Notes Pt seen and examined by myself, Alma Crawford MD on the day of service. Care was coordinated with Ludmila Maldonado PA-C. In short, 72yoM admitted with extensive PEs after having an elevated D-dimer test ordered by his pcp. Had PEs a few years ago as well and was on anticoagulation for about 6-9 months. States that he plays golf and 2 years ago could do 18 holes. Has noticed that his ability to golf has decreased, and was doing 9 holes a week ago. However yesterday he could not get through 1 hole without feeling significantly SOB. Presented for evaluation and was sent to the ED. Not hypoxic, hemodynamically stable. No increased effort of breathing, breath sounds were clear. CT chest noted extensive PEs with pulmonary HTN. On heparin drip, pulmonology consult- appreciate recs. Otherwise as above.
[2023-08-07] MEDS: HEPARIN SODIUM/DEXTROSE 25,000 UNITS/500 ML BAG IV SCH (12:33)
[2023-08-07] MEDS ORDERED: POLYETHYLENE (MIRALAX) 17 GM PACK PO PRN (13:55)
[2023-08-07] MEDS ORDERED: ACETAMINOPHEN 325 MG TAB PO PRN (13:55)
[2023-08-07] MEDS ORDERED: ONDANSETRON INJ 2 MG/ML 2 ML VIAL IV PRN (13:55)
[2023-08-07] MEDS ORDERED: GLUCOSE 10 TAB/TUBE PO PRN (14:00)
[2023-08-07] MEDS ORDERED: GLUCOSE 40% GEL 15 GM TUBE PO PRN (14:00)
[2023-08-07] MEDS ORDERED: DEXTROSE 50% 50 ML SYRINGE IV PRN (14:00)
[2023-08-07] MEDS ORDERED: GLUCAGON FOR INJ 1 MG VIAL SQ PRN (14:00)
[2023-08-07] MEDS ORDERED: CARBOHYDRATES FOR HYPOGLYCEMIA PO PRN (14:00)
--- NOTE | 2023-08-07 15:42 | Pulmonary Consultation ---
Date of Consultation August 07, 2023 Assessment & Plan (1) Bilateral pulmonary embolism: (2) Nocturnal hypoxia: Plan Impression: 72-year-old male with unprovoked PE. This is his second event and lifelong anticoagulation is warranted. He is hemodynamically stable. He has been initiated on heparin. Recommendations: 1. Acute PE: Continue heparin. Await echocardiogram. Can likely transition to oral anticoagulation within the next 24 to 48 hours. Given that this is his second unprovoked event, lifelong anticoagulation is recommended. No need for hypercoagulable work-up at this time. 2. History of nocturnal hypoxemia: Recommend nocturnal oximetry to assess whether or not supplemental oxygen is required. 3. Age-appropriate cancer screening. Would be happy to see the patient back in pulmonary clinic for follow-up if needed. Thanks for the opportunity of participating in the care of this patient. Feel free to contact us with additional questions or concerns History of Present Illness Attending Physician: Alma Crawford MD History of Present Illness Asked by hospitalist to evaluate this patient with pulmonary embolism. Patient seen and examined. EMR reviewed. Patient is a 72-year-old male who developed an acute PE in August 2021. He was treated with 6 or 9 months of anticoagulation at that time. He believes that the acute PE at that time was related to his COVID vaccination. The patient has had shortness of breath going on for 9 months. Has been seen by the pulmonary group at [facility]. He was given oxygen at some point in time. We do not have his evaluation to review. The patient reports that his shortness of breath became progressive to the point that he [place] no longer walk [place]. This shortness of breath prompted him to come to the emergency room. He was studied with a CT angiogram which demonstrated bilateral filling defects consistent with acute PE. Of note the patient did undergo a CT angiogram in February of this year which demonstrated no acute filling defects. He has been initiated on heparin and was admitted to the hospital for further management. The patient denies any chest pain or palpitations. No hemoptysis. No fevers chills or night sweats. No cough or sputum production. No syncope or presyncope. He has not noted any significant lower extremity edema. He denies any family history of bleeding or clotting disorders and no history of sudden cardiac that he is aware of Allergies Allergy/AdvReac Type Severity Reaction Status Date / Time FROG LEGS Allergy Severe Anaphylaxis Uncoded 09/01/21 16:49 Home Medications Medication Instructions Recorded Confirmed Type diphenhydramine HCl 25 mg capsule 25 mg PO DIRECTED PRN 09/01/21 08/07/23 History (ZzzQuil) SLEEP/COUGH famotidine 20 mg tablet 20 mg PO HS 09/01/21 08/07/23 History hydrochlorothiazide 12.5 mg tablet 12.5 mg PO DAILY 09/01/21 08/07/23 History lisinopril 20 mg tablet 40 mg PO DAILY 09/01/21 08/07/23 History pravastatin 40 mg tablet 40 mg PO DAILY 09/01/21 08/07/23 History sildenafil 100 mg tablet 100 mg PO DAILY PRN Erectile 09/01/21 08/07/23 History Dysfunction metformin 500 mg tablet,extended 250 mg PO DAILY 08/07/23 08/07/23 History release 24 hr metoprolol succinate 25 mg 12.5 mg PO DAILY 08/07/23 08/07/23 History tablet,extended release 24 hr Patient History Medical History (Updated 08/07/23 @ 14:10 by Ludmila Maldonado PA-C) Acquired coagulation factor deficiency DM (diabetes mellitus), type 2 Dyslipidemia Erectile dysfunction GERD (gastroesophageal reflux disease) HTN (hypertension) Surgical History History of hernia repair Family History Father Lung cancer Former smoker, asbestos exposure Denies family history of Clotting disorder Social History Smoking Status: Former smoker Second Hand Exposure: No; Do You Dip or Chew Tobacco: No; Tobacco Cessation Education Requested by Patient: No Hx Alcohol Use: No Hx Substance Use: No Preferred Language: Nigerian Communication Ability: Effective Molding Manager Required: No Beliefs That Will Affect Care: None Current Living Situation: Spouse Other Information That Helps Us Care for You: No Feels Safe at Home: Yes Assistive Devices: None Review of Systems Review of Systems: Please refer to admission H&P. No additions or deletions Physical Exam Constitutional: WD/WN, vitals as above Neck: trachea midline, no thyromegaly Respiratory: normal respiratory effort, lungs clear to auscultation Cardiovascular: RRR, no murmur, no edema Gastrointestinal (Abdomen): normal bowel sounds, soft, nontender, no hepatosplenomegaly Musculoskeletal: Extremities: extremities normal to inspection Skin: no rashes, warm and dry Neurologic: Nonfocal exam Lymphatic: no cervical lymphadenopathy Results & Data Results & Data Vital Signs (Past 12 Hours) Vital Signs Temp Pulse Pulse Resp BP BP Pulse Ox 08/07/23 10:15 103 H 08/07/23 15:11 86 08/07/23 14:00 95 H 08/07/23 13:50 36.8 C 88 20 143/96 H 96 08/07/23 12:30 85 28 H 131/103 H 91 08/07/23 12:00 86 29 H 136/95 92 08/07/23 11:32 86 27 H 158/107 H 92 08/07/23 10:10 92 H 22 93 08/07/23 10:10 93 08/07/23 10:14 103 H 08/07/23 10:01 36.5 C 98 H 20 156/104 H 100 O2 Del Method 08/07/23 10:15 08/07/23 15:11 08/07/23 14:00 08/07/23 13:50 Room Air 08/07/23 12:30 Room Air 08/07/23 12:00 Room Air 08/07/23 11:32 Room Air 08/07/23 10:10 Room Air 08/07/23 10:10 Room Air 08/07/23 10:14 08/07/23 10:01 Room Air Critical Care Results & Data Vital Signs (Past 12 Hours) Vital Signs Temp Pulse Pulse Resp BP BP Pulse Ox 08/07/23 10:15 103 H 08/07/23 15:11 86 08/07/23 14:00 95 H 08/07/23 13:50 36.8 C 88 20 143/96 H 96 08/07/23 12:30 85 28 H 131/103 H 91 08/07/23 12:00 86 29 H 136/95 92 08/07/23 11:32 86 27 H 158/107 H 92 08/07/23 10:10 92 H 22 93 08/07/23 10:10 93 08/07/23 10:14 103 H 08/07/23 10:01 36.5 C 98 H 20 156/104 H 100 O2 Del Method 08/07/23 10:15 08/07/23 15:11 08/07/23 14:00 08/07/23 13:50 Room Air 08/07/23 12:30 Room Air 08/07/23 12:00 Room Air 08/07/23 11:32 Room Air 08/07/23 10:10 Room Air 08/07/23 10:10 Room Air 08/07/23 10:14 08/07/23 10:01 Room Air Lab & Micro Results (Past 24 Hours) RBC 5.10 M/uL (4.70-6.10) 08/07/23 WBC 6.44 K/ul (4.8-10.8) 08/07/23 Hgb 15.1 g/dl (14.0-18.0) 08/07/23 Hct 44.1 % (42.0-52.0) 08/07/23 MCV 86.5 fL (80.0-100.0) 08/07/23 MCH 29.6 pg (25.0-34.0) 08/07/23 MCHC 34.2 g/dL (32.0-36.0) 08/07/23 RDW Standard Deviation 42.4 fL (36.4-46.3) 08/07/23 RDW Coefficient of Variation 13.4 % (11.5-14.5) 08/07/23 Plt Count 200 K/uL (130-400) 08/07/23 MPV 10.2 fL (9.4-12.4) 08/07/23 Neutrophils (%) (Auto) 65.9 % 08/07/23 Lymphocytes (%) (Auto) 18.8 % 08/07/23 Monocytes # (Auto) 0.77 K/uL (0.11-0.59) H 08/07/23 Eosinophils # (Auto) 0.13 K/uL (0.00-0.50) 08/07/23 Immature Granulocyte % (Auto) 0.5 % 08/07/23 Neutrophils # (Auto) 4.25 K/uL (1.40-6.50) 08/07/23 Lymphocytes # (Auto) 1.21 K/uL (1.20-3.40) 08/07/23 Monocytes # (Auto) 0.77 K/uL (0.11-0.59) H 08/07/23 Eosinophils # (Auto) 0.13 K/uL (0.00-0.50) 08/07/23 Basophils # (Auto) 0.05 K/uL (0.00-0.20) 08/07/23 Immature Granulocyte # (Auto) 0.03 K/uL (0.01-0.20) 3 Na 136 mmol/L (136-145) 08/07/23 K 4.1 mmol/L (3.5-5.1) 08/07/23 Cl 104 mmol/L (98-107) 08/07/23 CO2 23 mmol/L (21-32) 08/07/23 Anion Gap 9 (3-11) 08/07/23 BUN 20 mg/dl (6-23) 08/07/23 Creatinine 1.31 mg/dl (0.6-1.4) 08/07/23 Estimated GFR ( Amer) 63.5 ml/min 08/07/23 Estimated GFR (Non-Af Amer) 54.8 ml/min 08/07/23 BUN/Creatinine Ratio 15.3 (10-20) 08/07/23 Glu 157 mg/dl (70-99(Fasting)) H 08/07/23 Ca 9.2 mg/dl (8.6-10.3) 08/07/23 Total Bilirubin 1.1 mg/dl (0.2-1.0) H 08/07/23 AST 18 U/L (13-39) 08/07/23 ALT 21 U/L (7-52) 08/07/23 Alkaline Phosphatase 54 U/L (34-104) 08/07/23 TP 8.1 gm/dl (6.0-8.3) 08/07/23 Albumin 4.1 gm/dl (3.4-5.0) 08/07/23 Globulin 4.0 gm/dl (2.5-4.0) 08/07/23 Albumin/Globulin Ratio 1.0 (0.9-2) 08/07/23 Calcium Level 9.2 mg/dl (8.6-10.3) 08/07/23 10:11 Prothromb Time International Ratio 1.0 (0.9-1.1) 08/07/23 10:1 1 Diagnostic Findings (Past 24 Hours) Chest X-Ray 08/07/23 10:08 SINGLE VIEW CHEST CLINICAL HISTORY: Atypical chest pain FINDINGS: An AP upright chest radiograph is correlated with chest CT dated 03/10/2023. There is a large hiatal hernia appear The heart is enlarged. The pulmonary vasculature is noncongested. Chronic interstitial thickening similar to previous. There is bibasilar scarring/atelectasis. The lungs and pleural spaces are otherwise clear. No pneumothorax is seen. The skeletal structures are osteopenic. There are chronic/healed left-sided rib fractures. IMPRESSION: 1. Cardiomegaly with no active disease in the chest. 2. Large hiatal hernia. ACT 112: Negative or not required by law. Electronically signed by: Rahat Jacobson M.D. 08/07/2023 10:37 AM Chest CTA 08/07/23 10:26 CT ANGIOGRAM OF THE CHEST CLINICAL HISTORY: Dyspnea. Atypical chest pain. Elevated d-dimer. COMPARISON STUDY: Chest x-ray dated . Chest CT dated 03/10/2023. TECHNIQUE: Following the IV administration of 100 cc of Optiray 350, CT angiogram of the chest was performed from the upper abdomen to the thoracic inlet utilizing the pulmonary embolus protocol. Images are reviewed in the axial, sagittal, and coronal planes. 3-D MIPS images are created and assessed. IV contrast was administered without complication. A dose lowering technique was utilized adhering to the principles of ALARA. CT DOSE: 885.82 mGy.cm FINDINGS: Thyroid: Imaged portions of the thyroid gland are normal in size and attenuation. Thoracic aorta: There is mild aneurysmal dilatation of the ascending thoracic aorta which measures up to 4.1 cm in diameter. The remainder of the thoracic aorta is normal in caliber comment the arch demonstrates standard 3-vessel anatomy. The thoracic aorta is not well opacified. Pulmonary vasculature: The pulmonary trunk is dilated, measuring 4.6 cm in diameter. This suggests pulmonary artery hypertension. There is extensive high lateral pulmonary embolus. There is thrombus throughout the right main pulmonary artery. This extends into the right upper, middle, and lower lobe pulmonary arteries and segmental and subsegmental branches. There is thrombus within the distal left main pulmonary artery which extends into the left lower lobe pulmonary artery into segmental and subsegmental branches. There are segmental and subsegmental pulmonary emboli within branches of the left upper lobe and lingular pulmonary arteries. Heart: The heart is enlarged and without pericardial effusion. There are coronary artery calcifications. Lungs and pleural spaces: Evaluation of the lung parenchyma is degraded by motion artifact. Mild emphysematous change is observed. The trachea and central airways are clear. Scarring/atelectasis is noted at both lung bases. There is no airspace consolidation typical for pneumonia or pleural effusion. Mediastinum: There is no mediastinal lymphadenopathy. Britt: Clear. Axillae: There is no axillary lymphadenopathy. Upper abdomen: There is a large hiatal hernia. Partially visualized upper abdominal viscera is within normal limits. Skeletal structures: The skeletal structures are osteopenic. No lytic or blastic bony lesions are seen. Degenerative change is noted in the shoulders and spine. IMPRESSION: 1. Extensive bilateral pulmonary embolus as above. 2. Cardiomegaly and mild emphysema. 3. There is no airspace consolidation typical for pneumonia or pleural effusion. 4. Large hiatal hernia. 5. Additional findings as above. ACT 112: Negative or not required by law. Electronically signed by: Rahat Jacobson M.D. 08/07/2023 11:30 AM RT Ventilator Mngmt (Last Documented) Ventilator Ordered Settings Respiratory Rate 20 08/07/23 13:50 Ventilator - PT Measurements Respiratory Rate 20 PG Care Time/CCT Total # of Minutes Spent Total Time Spent with Patient: Total time spent is greater than 50% in coordination of care (as documented) at patient's floor/unit and/or counseling patient: Coding Level of Care Code 43903 INT INP/OBS CARE 3/75MIN Diagnoses Bilateral pulmonary embolism I26.99 Nocturnal hypoxia G47.34
[2023-08-07] MEDS: INSULIN ASPART PER UNIT CHARGE SC SCH ×2 (17:15→20:09)
[2023-08-07 19:16] LABS: Partial Thromboplastin Ratio 2.4
[2023-08-07 19:22] LABS: Partial Thromboplastin Time 67.7 Seconds (21.0-31.0)
[2023-08-07] MEDS: FAMOTIDINE 20 MG TAB PO SCH (20:08)
[2023-08-08 02:33] LABS: Partial Thromboplastin Time 57.2 Seconds (21.0-31.0)
[2023-08-08] MEDS: HEPARIN SODIUM/DEXTROSE 25,000 UNITS/500 ML BAG IV SCH ×2 (05:26→21:36)
[2023-08-08 07:34] LABS: Hematocrit (blood only) 40.3 % (42.0-52.0); Hemoglobin 13.9 g/dl (14.0-18.0); Mean Corpuscular Hemoglobin 29.3 pg (25.0-34.0); Mean Corpuscular Hgb Conc 34.5 g/dL (32.0-36.0); Mean Corpuscular Volume 84.8 fL (80.0-100.0); Mean Platelet Volume 10.3 fL (9.4-12.4); Platelet Count 182 K/uL (130-400); RDW Coefficient of Variation 13.7 % (11.5-14.5); RDW Standard Deviation 42.3 fL (36.4-46.3); Red Blood Count 4.75 M/uL (4.70-6.10); White Blood Count 6.82 K/ul (4.8-10.8)
--- NOTE | 2023-08-08 07:39 | Pulmonology Progress Note ---
Date of Service August 08, 2023 Assessment & Plan (1) Bilateral pulmonary embolism: (2) Nocturnal hypoxia: Plan Impression: 72-year-old male with unprovoked PE. This is his second event and lifelong anticoagulation is warranted. He is hemodynamically stable. He is currently therapeutic on heparin Recommendations: 1. Acute PE: Continue heparin. Lifelong anticoagulation. Given the RV strain would continue IV heparin for additional 24 to 48 hours then can transition to oral agents. 2. History of nocturnal hypoxemia: Recommend nocturnal oximetry to assess whether or not supplemental oxygen is required. 3. Age-appropriate cancer screening. 4. Pulmonary hypertension: Suspect acute related to vascular obstruction. Follow-up echocardiogram in 3 months. Would be happy to see the patient back in pulmonary clinic for follow-up if needed. Thanks for the opportunity of participating in the care of this patient. Feel free to contact us with additional questions or concerns Admission and Anticipated Discharge Date Admission Date: August 07, 2023 Subjective Patient seen and examined. EMR reviewed. The patient states he is feeling well. He denies chest pain or shortness of breath. No lower extremity edema. No syncope or presyncope. No hemoptysis. No cough. No evidence of bleeding. Review of Systems Review of Systems: All systems reviewed & are unremarkable except as noted in Subjective Physical Exam Constitutional: WD/WN, vitals as above Neck: trachea midline, no thyromegaly Respiratory: normal respiratory effort, lungs clear to auscultation Cardiovascular: RRR, no murmur, no edema Gastrointestinal (Abdomen): normal bowel sounds, soft, nontender, no hepatosplenomegaly Musculoskeletal: Extremities: extremities normal to inspection Skin: no rashes, warm and dry Lymphatic: no cervical lymphadenopathy Results & Data Results & Data Vital Signs (Past 12 Hours) Vital Signs Temp Pulse Pulse Pulse Pulse Resp BP 08/08/23 07:28 36.6 C 68 16 116/80 08/08/23 05:15 81 08/08/23 03:43 36.5 C 80 14 104/71 08/08/23 00:54 88 08/07/23 22:56 78 08/07/23 22:40 36.8 C 89 18 130/96 08/07/23 22:25 66 Pulse Ox Pulse Ox O2 Del Method O2 Del Method 08/08/23 07:28 95 Room Air 08/08/23 05:15 94 Room Air 08/08/23 03:43 93 Room Air 08/08/23 00:54 92 Room Air 08/07/23 22:56 08/07/23 22:40 96 Room Air 08/07/23 22:25 95 Room Air Laboratory Results 08/08/23 07:04 Diagnostic Findings Preliminary report from echocardiogram showed RV strain with severe pulmonary hypertension PG Care Time/CCT Total # of Minutes Spent Total Time Spent with Patient: Total time spent is greater than 50% in coordination of care (as documented) at patient's floor/unit and/or counseling patient: Coding Level of Care Code 62998 SUB INP/OBS CARE 2/35MIN Diagnoses Bilateral pulmonary embolism I26.99 Nocturnal hypoxia G47.34
[2023-08-08 07:54] LABS: BUN Creatinine Ratio 17.1 (10-20); Calcium 8.8 mg/dl (8.6-10.3); Creatinine Clr Calc Pharmacy 75.2 ml/min; Est GFR (African American) 77.6 ml/min; Est GFR (Non-African American) 66.9 ml/min; Potassium 4.6 mmol/L (3.5-5.1)
[2023-08-08] MEDS: PRAVASTATIN SOD 40 MG TAB PO SCH (08:18)
[2023-08-08] MEDS: METOPROLOL SUCC 25MG EXT REL TAB PO SCH (08:18)
[2023-08-08] MEDS: lisinopril 40 MG TAB PO SCH (08:19)
[2023-08-08] MEDS: hydroCHLOROthiazide 25 MG TAB PO SCH (08:19)
[2023-08-08] MEDS: INSULIN ASPART PER UNIT CHARGE SC SCH ×4 (08:21→21:39)
--- NOTE | 2023-08-08 09:30 | Electrocardiogram Report ---
Test Reason : Blood Pressure : / mmHG Vent. Rate : 082 BPM Atrial Rate : 082 BPM P-R Int : 176 ms QRS Dur : 082 ms QT Int : 438 ms P-R-T Axes : 048 014 -49 degrees QTc Int : 511 ms Sinus rhythm with frequent Premature ventricular complexes T wave abnormality, consider inferior ischemia T wave abnormality, consider anterior ischemia Prolonged QT Abnormal ECG When compared with ECG of 07-AUG-2023 10:07, Fusion complexes are no longer Present Confirmed by Oren Dias ([id number]) on 08/08/2023 9:30:22 AM Referred By: Dilshad Mejia Confirmed By:Oren Dias
--- NOTE | 2023-08-08 11:22 | Hospitalist Progress Note ---
Date of Service August 08, 2023 Assessment & Plan (1) Bilateral pulmonary embolism: Plan: per admitting C notes with addendum: This is a 72-year-old male with PMH of type 2 diabetes, dyslipidemia, history of bilateral PEs in August 2021, recently diagnosed nocturnal hypoxia noncompliant with supplemental oxygen, and other medical problems listed below who presents from outpatient setting with abnormal lab work and SOB and was found to have bilateral PEs. Acute on chronic SOB, worsening over past 6 months but significantly worse over past few days, intermittent palpitations Outpatient d-dimer elevated, directed to ED for further evaluation Hemodynamically stable, O2 96% on room air, HS trop 30 CTA chest with extensive bilateral pulmonary embolus. No evidence of heart strain noted on CTA Started on IV heparin in ED, consider transiton to oral anticoagulant tomorrow Pulmonary consult given extensive nature of PE - Dr. Bai recommends lifelong anticoagulation given this second PE event Resting echo to evaluate for heart strain Trend troponin, monitor on telemetry, supplemental O2, monitor for hemodynamic stability 08/08 stable on room air continue Heparin drip due to extensive clot burden anticipate transitioning to Eliquis tomorrow (2) Nocturnal hypoxia: Plan: Seen by pulm for 6 months of dyspnea on exertion, underwent nocturnal pulseox study and found to be hypoxic Prescribed 2L NC O2 HS but has been non-compliant Due for PFTs next week, sleep study appt in Aug Will order nocturnal oximetry: will discuss with RT (3) HTN (hypertension): Plan: BP slightly elevated 143/96. Continue home Toprol, lisinopril, hctz (4) DM (diabetes mellitus), type 2: Plan: A1c 6.7 in February 2023, repeat in AM Hold home agents SSI while in-patient BSG AC HS (5) Dyslipidemia: Plan: Chronic, stable. Continue statin DVT Ppx: IV heparin Code status: CODE PCP: Hnay Mejia Dispo: anticipate d/c home when medically stable Admission and Anticipated Discharge Date Admission Date: August 07, 2023 Subjective ff up for acute PE, etc seen resting in chair, comfortable states he feels better today than yesterday breathing is better no chest pain no bleeding able to ambulate in the room with less dyspnea Review of Systems Review of Systems: no chest pain, dyspnea, palpitations, dizziness Physical Exam Physical Exam: General- oriented x 3, not in distress, speaks in sentences with no effort or accessory muscle use Eyes- anicteric Neck- no JVD Lungs- clear breath sounds bilaterally, no rales/wheezes Heart- normal rate, regular rhythm; no murmurs Abdomen- normal bowel sounds, nondistended, soft, nontender Extremities- no pretibial edema, no calf tenderness Neuro- alert, oriented x 3; no gross focal neurologic deficits Skin- warm & dry Results & Data Results & Data Vital Signs (Past 12 Hours) Vital Signs Temp Pulse Pulse Pulse Pulse Resp BP 08/08/23 11:01 36.4 C L 76 16 124/78 08/08/23 07:30 77 08/08/23 07:28 36.6 C 68 16 116/80 08/08/23 05:15 81 08/08/23 03:43 36.5 C 80 14 104/71 08/08/23 00:54 88 Pulse Ox Pulse Ox O2 Del Method O2 Del Method 08/08/23 11:01 97 Room Air 08/08/23 07:30 08/08/23 07:28 95 Room Air 08/08/23 05:15 94 Room Air 08/08/23 03:43 93 Room Air 08/08/23 00:54 92 Room Air all noted and reviewed including below
[2023-08-08] MEDS: FAMOTIDINE 20 MG TAB PO SCH (21:37)
[2023-08-09 06:52] LABS: Hematocrit (blood only) 42.5 % (42.0-52.0); Hemoglobin 14.1 g/dl (14.0-18.0); Mean Corpuscular Hgb Conc 33.2 g/dL (32.0-36.0); Mean Corpuscular Volume 87.3 fL (80.0-100.0); Mean Platelet Volume 10.1 fL (9.4-12.4); Platelet Count 189 K/uL (130-400); RDW Coefficient of Variation 13.6 % (11.5-14.5); RDW Standard Deviation 43.5 fL (36.4-46.3); Red Blood Count 4.87 M/uL (4.70-6.10); White Blood Count 6.82 K/ul (4.8-10.8)
[2023-08-09 07:15] LABS: BUN Creatinine Ratio 18.7 (10-20); Calcium 9.6 mg/dl (8.6-10.3); Creatinine Clr Calc Pharmacy 66.5 ml/min; Est GFR (African American) 68.5 ml/min; Est GFR (Non-African American) 59.1 ml/min; Potassium 4.5 mmol/L (3.5-5.1)
[2023-08-09 07:25] LABS: Partial Thromboplastin Ratio 2.3
[2023-08-09 07:28] LABS: Partial Thromboplastin Time 63.6 Seconds (21.0-31.0)
[2023-08-09 07:44] LABS: Estimated Average Glucose 143 mg/dl; Hemoglobin A1C 6.6 % (4.5-5.6)
[2023-08-09] MEDS: INSULIN ASPART PER UNIT CHARGE SC SCH ×2 (08:13→12:08)
[2023-08-09] MEDS: METOPROLOL SUCC 25MG EXT REL TAB PO SCH (08:26)
[2023-08-09] MEDS: PRAVASTATIN SOD 40 MG TAB PO SCH (08:26)
[2023-08-09] MEDS: lisinopril 40 MG TAB PO SCH (08:27)
[2023-08-09] MEDS: hydroCHLOROthiazide 25 MG TAB PO SCH (08:27)
--- NOTE | 2023-08-09 08:44 | Pulmonology Progress Note ---
Date of Service August 09, 2023 Assessment & Plan (1) Bilateral pulmonary embolism: (2) Nocturnal hypoxia: Plan Impression: 72-year-old male with unprovoked PE. This is his second event and lifelong anticoagulation is warranted. He is hemodynamically stable. He is currently therapeutic on heparin Recommendations: 1. Acute PE: Discontinue heparin and transition to oral anticoagulation. Start Eliquis 10 mg p.o. twice daily for 7 days then transition to 5 mg p.o. twice d aily indefinitely. Lifelong anticoagulation is recommended. 2. History of nocturnal hypoxemia: Reviewed his initial study which demonstrated evidence of sleep disordered breathing but no significant nocturnal hypoxemia. The overnight oximetry performed here in the hospital shows no need for supplemental oxygen at night. This study was performed with an elevated head of bed which may have alleviated the patient's underlying sleep apnea. He states he has a bed at home which will allow for elevation of the head. Recommended that he continue to do that. We can assess for outpatient polysom nography when the patient is clinically stable. 3. Age-appropriate cancer screening. 4. Pulmonary hypertension: Suspect acute related to vascular obstruction. Follow-up echocardiogram in 3 months. Patient appears stable to dismiss from the hospital. He can follow-up with me with a repeat echocardiogram in 10 to 12 weeks. Pulmonary will sign off at this point time. Feel free to contact us with questions or concerns Admission and Anticipated Discharge Date Admission Date: August 07, 2023 Subjective Patient seen and examined. EMR reviewed. He is doing well clinically. He Nuys any chest pain or palpitations. No hemoptysis. No shortness of breath with act ivity. Review of Systems Review of Systems: All systems reviewed & are unremarkable except as noted in Subjective Physical Exam Constitutional: WD/WN, vitals as above Neck: trachea midline, no thyromegaly Respiratory: normal respiratory effort, lungs clear to auscultation Cardiovascular: RRR, no murmur, no edema Gastrointestinal (Abdomen): normal bowel sounds, soft, nontender, no hepatosplenomegaly Musculoskeletal: Extremities: extremities normal to inspection Skin: no rashes, warm and dry Lymphatic: no cervical lymphadenopathy Results & Data Results & Data Vital Signs (Past 12 Hours) Vital Signs Temp Pulse Pulse Resp BP Pulse Ox O2 Del Method 08/09/23 07:30 75 08/09/23 07:15 36.5 C 75 16 118/84 97 Room Air 08/09/23 03:11 36.8 C 80 16 98/68 L 81 L Room Air 08/09/23 00:07 74 08/09/23 00:02 36.6 C 94 H 18 130/83 97 Room Air Laboratory Results 08/09/23 05:44 08/09/23 05:44 Diagnostic Findings Overnight oximetry showed no significant oxygen desaturations. PG Care Time/CCT Total # of Minutes Spent Total Time Spent with Patient: Total time spent is greater than 50% in coordination of care (as documented) at patient's floor/unit and/or counseling patient: Coding Level of Care Code 10074 SUB INP/OBS CARE 2/35MIN Diagnoses Bilateral pulmonary embolism I26.99 Nocturnal hypoxia G47.34
[2023-08-09] MEDS ORDERED: APIXABAN 5 MG TABLET PO SCH (09:00)
--- NOTE | 2023-08-09 10:32 | Hospitalist Progress Note ---
Date of Service August 09, 2023 Assessment & Plan (1) Bilateral pulmonary embolism: Plan: With right ventricular strain, severe pulmonary hypertension per admitting SVC notes with addendum: This is a 72-year-old male with PMH of type 2 diabetes, dyslipidemia, history of bilateral PEs in August 2021, recently diagnosed nocturnal hypoxia noncompliant with supplemental oxygen, and other medical problems listed below who presents from outpatient setting with abnormal lab work and SOB and was found to have bilateral PEs. Acute on chronic SOB, worsening over past 6 months but significantly worse over past few days, intermittent palpitations Outpatient d-dimer elevated, directed to ED for further evaluation Hemodynamically stable, O2 96% on room air, HS trop 30 CTA chest with extensive bilateral pulmonary embolus. No evidence of heart strain noted on CTA Echo: EF 60 to 65% Moderate concentric LVH Right ventricle is moderate to severely dilated Right ventricular systolic function is moderately reduced Diffuse right ventricular hypokinesis with sparing of the apex Estimated systemic pulmonary pressures 74 mmHg Findings consistent with right ventricular strain and severe pulmonary hypertension Pulm Consulted- Dr. Bai received 2 days of Heparin drip due to extensive clot burden stable on room air transitioned to Eliquis 10mg BID x 1 week, then 5mg BID recommend life long anticoagulation repeat echo in 3 months to re-evaluate pulmonary hypertension Outpatient sleep study Follow-up with animal control specialist Dr. Bai in 1 to 2 weeks Mild troponin elevation secondary to above Possible demand ischemia Troponin 34, 35, 30 (2) Nocturnal hypoxia: Plan: Seen by pulm for 6 months of dyspnea on exertion, underwent nocturnal pulseox study and found to be hypoxic Prescribed 2L NC O2 HS but has been non-compliant Inpatient pulse oximetry: Patient does not require oxygen supplement at night Due for PFTs next week, sleep study appt in Aug (3) HTN (hypertension): Plan: Continue home Toprol, lisinopril, hctz (4) DM (diabetes mellitus), type 2: Plan: A1c 6.6 Continue usual medications (5) Dyslipidemia: Plan: Chronic, stable. Continue statin plan of care discussed with patient in detail and at length all questions answered he is understanding, agreeable, comfortable with the plan of care Admission and Anticipated Discharge Date Admission Date: August 07, 2023 Subjective ff up for PE, etc seen sitting up in chair, comfortable states he feels fine overall no chest pain, dyspnea, palpitations, dizziness ambulated in the halls with no problems no bleeding states he is ready for discharge Review of Systems Review of Systems: all noted and negative except for above Physical Exam Physical Exam: General- oriented x 3, not in distress, speaks in sentences with no effort or accessory muscle use Eyes- anicteric Neck- no JVD Lungs- clear breath sounds bilaterally, no rales/wheezes Heart- normal rate, regular rhythm; no murmurs Abdomen- normal bowel sounds, nondistended, soft, nontender Extremities- no pretibial edema, no calf tenderness Neuro- alert, oriented x 3; no gross focal neurologic deficits Skin- warm & dry Results & Data Results & Data Vital Signs (Past 12 Hours) Vital Signs Temp Pulse Pulse Resp BP Pulse Ox O2 Del Method 08/09/23 07:30 75 08/09/23 07:15 36.5 C 75 16 118/84 97 Room Air 08/09/23 03:11 36.8 C 80 16 98/68 L 81 L Room Air 08/09/23 00:07 74 08/09/23 00:02 36.6 C 94 H 18 130/83 97 Room Air all noted and reviewed including below
--- NOTE | 2023-08-09 18:58 | Discharge Summary ---
Discharge Summary Date of Service August 09, 2023 Notes For Next Care Provider Medication Changes From Visit Eliquis Admission HPI Per Admitting Provider This is a 72-year-old male with PMH of type 2 diabetes, dyslipidemia, history of bilateral PEs in August 2021, recently diagnosed nocturnal hypoxia noncompliant with supplemental oxygen, and other medical problems listed below who presents from outpatient setting with abnormal lab work and SOB. Has had progressively worsening shortness of breath over the past few days, which he noticed when golfing and felt short of breath after 2 holes of golf. Also felt short of breath crossing the street yesterday, prompting a visit to PCP. D-dimer is found to be elevated and patient was directed to ED for further evaluation. Has been less active over the past 6 months but is still going on weekly walks. No recent travel. Also endorses intermittent palpitations over the past 6 months, most notable at night. Does take NyQuil every night due to issues with insomnia. Saw pulmonology earlier this summer due to complaints of dyspnea on exertion of the past 6 months. [place] to be largely due to deconditioning but nocturnal pulse ox revealed hypoxia and patient prescribed 2 L O2 at bedtime which he has been noncompliant with due to finding the oxygen machine loud. Is scheduled for PFTs next week with pulmonology. History of blood clots in lungs in 2020 in the setting of covid. Had outpatient hypercoagulability labs at that time in Aug 2021 which showed abnormality with cardiolipin igm antibody. Was placed on Eliquis for 6 months and then it was discontinued in January 2022 with PEs attributed to covid infection. Denies any workup with hematology and cannot find in chart review. No known history of clotting disorders personally or in family. Remote smoking history. Patient with some conversational shortness of breath at rest but otherwise comfortable. Denies any recent infection, fever, chills, lightheadedness, chest pain, nausea, vomiting, abdominal pain, dysuria, diarrhea or constipation. Admission Exam Per Admitting Provider General Appearance:WD/WN, vitals as above, NAD, sitting up in bed, obese, + conversational dyspnea Head: normocephalic, atraumatic Eyes:normal inspection, PERRL, conjunctivae normal, anicteric sclerae ENT: external ear and nose normal, oropharynx normal Neck: normal visual inspection, trachea midline, no thyromegaly Respiratory:normal respiratory effort, lungs clear to auscultation, no wheeze, rales, rhonchi. No accessory muscle use Cardiovascular: regular rate, rhythm, no murmur, normal peripheral pulses, no BLE edema. Vessels: no JVD Chest: normal inspection of chest Abdomen/GI: normal bowel sounds, soft, nontender, no hepatosplenomegaly Extremities/Musculoskeletal: no cyanosis or clubbing, extremities motor strength 5/5 Neurologic: PERRL, EOMI, accommodation nl, no face palsy, no dysarthria, CN's II-XI intact bilaterally and moves all extremities Psychiatric:A+Ox3, euthymic affect Skin: no rashes, normal color, warm/dry Principal Dx & Hospital Course #1 = Principal Diagnosis (1) Bilateral pulmonary embolism: With right ventricular strain, severe pulmonary hypertension per admitting SVC notes with addendum: This is a 72-year-old male with PMH of type 2 diabetes, dyslipidemia, history of bilateral PEs in August 2021, recently diagnosed nocturnal hypoxia noncompliant with supplemental oxygen, and other medical problems listed below who presents from outpatient setting with abnormal lab work and SOB and was found to have bilateral PEs. Acute on chronic SOB, worsening over past 6 months but significantly worse over past few days, intermittent palpitations Outpatient d-dimer elevated, directed to ED for further evaluation Hemodynamically stable, O2 96% on room air, HS trop 30 CTA chest with extensive bilateral pulmonary embolus. No evidence of heart strain noted on CTA Echo: EF 60 to 65% Moderate concentric LVH Right ventricle is moderate to severely dilated Right ventricular systolic function is moderately reduced Diffuse right ventricular hypokinesis with sparing of the apex Estimated systemic pulmonary pressures 74 mmHg Findings consistent with right ventricular strain and severe pulmonary hypertension Pulm Consulted- Dr. Bai received 2 days of Heparin drip due to extensive clot burden stable on room air transitioned to Eliquis 10mg BID x 1 week, then 5mg BID recommend life long anticoagulation repeat echo in 3 months to re-evaluate pulmonary hypertension Outpatient sleep study Follow-up with hogshead builder Dr. Bai in 1 to 2 weeks Mild troponin elevation secondary to above Possible demand ischemia Troponin 34, 35, [address] chest findings Thoracic aorta: There is mild aneurysmal dilatation of the ascending thoracic aorta which measures up to 4.1 cm in diameter. Upper abdomen: There is a large hiatal hernia. Partially visualized upper abdominal viscera is within normal limits. Further work up, management, and ff up as outpatient (2) Nocturnal hypoxia: Seen by pulm for 6 months of dyspnea on exertion, underwent nocturnal pulseox study and found to be hypoxic Prescribed 2L NC O2 HS but has been non-compliant Inpatient pulse oximetry: Patient does not require oxygen supplement at night Due for PFTs next week, sleep study appt in Aug (3) HTN (hypertension): Continue home Toprol, lisinopril, hctz (4) DM (diabetes mellitus), type 2: A1c 6.6 Continue usual medications (5) Dyslipidemia: Chronic, stable. Continue statin plan of care discussed with patient in detail and at length all questions answered he is understanding, agreeable, comfortable with the plan of care Discharge Exam General- oriented x 3, not in distress, speaks in sentences with no effort or accessory muscle use Eyes- anicteric Neck- no JVD Lungs- clear breath sounds bilaterally, no rales/wheezes Heart- normal rate, regular rhythm; no murmurs Abdomen- normal bowel sounds, nondistended, soft, nontender Extremities- no pretibial edema, no calf tenderness Neuro- alert, oriented x 3; no gross focal neurologic deficits Skin- warm & dry Updated Medication List Medication Instructions Recorded Confirmed Type diphenhydramine HCl 25 mg capsule 25 mg PO DIRECTED PRN 09/01/21 08/07/23 History (ZzzQuil) SLEEP/COUGH famotidine 20 mg tablet 20 mg PO HS 09/01/21 08/07/23 History hydrochlorothiazide 12.5 mg tablet 12.5 mg PO DAILY 09/01/21 08/07/23 History lisinopril 20 mg tablet 40 mg PO DAILY 09/01/21 08/07/23 History pravastatin 40 mg tablet 40 mg PO DAILY 09/01/21 08/07/23 History sildenafil 100 mg tablet 100 mg PO DAILY PRN Erectile 09/01/21 08/07/23 History Dysfunction metformin 500 mg tablet,extended 250 mg PO DAILY 08/07/23 08/07/23 History release 24 hr metoprolol succinate 25 mg 12.5 mg PO DAILY 08/07/23 08/07/23 History tablet,extended release 24 hr apixaban 5 mg (74 tabs) tablets in 5 mg PO BID #74 ea 08/09/23 Rx a dose pack (Eliquis) Hospital Stay Data Consultations 08/07/23 13:14 Consult Pulmonology Routine 08/07/23 13:22 ED Decision to Admit Stat Diagnostic Imagining Performed Laboratory Results WBC 6.82 K/ul (4.8-10.8) 08/09/23 05:44 RBC 4.87 M/uL (4.70-6.10) 08/09/23 05:44 Hgb 14.1 g/dl (14.0-18.0) 08/09/23 05:44 Hct 42.5 % (42.0-52.0) 08/09/23 05:44 MCV 87.3 fL (80.0-100.0) 08/09/23 05:44 MCH 29.0 pg (25.0-34.0) 08/09/23 05:44 MCHC 33.2 g/dL (32.0-36.0) 08/09/23 05:44 RDW Std Deviation 43.5 fL (36.4-46.3) 08/09/23 05:44 RDW Coeff of Tawny 13.6 % (11.5-14.5) 08/09/23 05:44 Plt Count 189 K/uL (130-400) 08/09/23 05:44 MPV 10.1 fL (9.4-12.4) 08/09/23 05:44 Immature Gran % (Auto) 0.5 % 08/07/23 10:11 Neut % (Auto) 65.9 % 08/07/23 10:11 Lymph % (Auto) 18.8 % 08/07/23 10:11 Meagher % (Auto) 12.0 % 08/07/23 10:11 Eos % (Auto) 2.0 % 08/07/23 10:11 Baso % (Auto) 0.8 % 08/07/23 10:11 Neut # (Auto) 4.25 K/uL (1.40-6.50) 08/07/23 10:11 Lymph # (Auto) 1.21 K/uL (1.20-3.40) 08/07/23 10:11 Meagher # (Auto) 0.77 K/uL (0.11-0.59) H 08/07/23 10:11 Eos # (Auto) 0.13 K/uL (0.00-0.50) 08/07/23 10:11 Baso # (Auto) 0.05 K/uL (0.00-0.20) 08/07/23 10:11 Immature Gran # (Auto) 0.03 K/uL (0.01-0.20) 08/07/23 10:11 PT 11.0 Seconds (9.0-12.0) 08/07/23 10:11 INR 1.0 (0.9-1.1) 08/07/23 10:11 APTT 63.6 Seconds (21.0-31.0) H* 08/09/23 05:44 PTT Ratio 2.3 08/09/23 05:44 Sodium 136 mmol/L (136-145) 08/09/23 05:44 Potassium 4.5 mmol/L (3.5-5.1) 08/09/23 05:44 Chloride 100 mmol/L (98-107) 08/09/23 05:44 Carbon Dioxide 28 mmol/L (21-32) 08/09/23 05:44 Anion Gap 8 (3-11) 08/09/23 05:44 BUN 23 mg/dl (6-23) 08/09/23 05:44 Creatinine 1.23 mg/dl (0.6-1.4) 08/09/23 05:44 Est Cr Clr Drug Dosing 66.5 ml/min 08/09/23 05:44 Est GFR ( Amer) 68.5 ml/min 08/09/23 05:44 Est GFR (Non-Af Amer) 59.1 ml/min 08/09/23 05:44 BUN/Creatinine Ratio 18.7 (10-20) 08/09/23 05:44 Glucose 123 mg/dl (70-99(Fasting)) H 08/09/23 05:44 POC Glucose 132 mg/dl (70-99) H 08/09/23 07:21 Estimat Average Glucose 143 mg/dl 08/08/23 07:04 Hemoglobin A1c 6.6 % (4.5-5.6) H 08/08/23 07:04 Calcium 9.6 mg/dl (8.6-10.3) 08/09/23 05:44 Total Bilirubin 1.1 mg/dl (0.2-1.0) H 08/07/23 10:11 AST 18 U/L (13-39) 08/07/23 10:11 ALT 21 U/L (7-52) 08/07/23 10:11 Alkaline Phosphatase 54 U/L (34-104) 08/07/23 10:11 Troponin I High Sens 30.7 pg/ml (0-20) H 08/08/23 01:20 B-Natriuretic Peptide 477 pg/ml (0-100) H 08/07/23 10:11 Total Protein 8.1 gm/dl (6.0-8.3) 08/07/23 10:11 Albumin 4.1 gm/dl (3.4-5.0) 08/07/23 10:11 Globulin 4.0 gm/dl (2.5-4.0) 08/07/23 10:11 Albumin/Globulin Ratio 1.0 (0.9-2) 08/07/23 10:11 TSH 2.522 uIu/ml (0.300-4.500) 08/07/23 10:11 SARS-CoV-2 (PCR) NEGATIVE (Negative) 08/07/23 11:15 Impressions Chest X-Ray 08/07/23 10:08 SINGLE VIEW CHEST CLINICAL HISTORY: Atypical chest pain FINDINGS: An AP upright chest radiograph is correlated with chest CT dated 03/10/2023. There is a large hiatal hernia appear The heart is enlarged. The pulmonary vasculature is noncongested. Chronic interstitial thickening similar to previous. There is bibasilar scarring/atelectasis. The lungs and pleural spaces are otherwise clear. No pneumothorax is seen. The skeletal structures are osteopenic. There are chronic/healed left-sided rib fractures. IMPRESSION: 1. Cardiomegaly with no active disease in the chest. 2. Large hiatal hernia. ACT 112: Negative or not required by law. Electronically signed by: Rahat Jacobson M.D. 08/07/2023 10:37 AM Chest CTA 08/07/23 10:26 CT ANGIOGRAM OF THE CHEST CLINICAL HISTORY: Dyspnea. Atypical chest pain. Elevated d-dimer. COMPARISON STUDY: Chest x-ray dated . Chest CT dated 03/10/2023. TECHNIQUE: Following the IV administration of 100 cc of Optiray 350, CT a ngiogram of the chest was performed from the upper abdomen to the thoracic inlet utilizing the pulmonary embolus protocol. Images are reviewed in the axial, sagittal, and coronal planes. 3-D MIPS images are created and assessed. IV contrast was administered without complication. A dose lowering technique was utilized adhering to the principles of ALARA. CT DOSE: 885.82 mGy.cm FINDINGS: Thyroid: Imaged portions of the thyroid gland are normal in size and attenuation. Thoracic aorta: There is mild aneurysmal dilatation of the ascending thoracic aorta which measures up to 4.1 cm in diameter. The remainder of the thoracic aorta is normal in caliber comment the arch demonstrates standard 3-vessel anatomy. The thoracic aorta is not well opacified. Pulmonary vasculature: The pulmonary trunk is dilated, measuring 4.6 cm in diameter. This suggests pulmonary artery hypertension. There is extensive high lateral pulmonary embolus. There is thrombus throughout the right main pulmonary artery. This extends into the right upper, middle, and lower lobe pulmonary arteries and segmental and subsegmental branches. There is thrombus within the distal left main pulmonary artery which extends into the left lower lobe pulmonary artery into segmental and subsegmental branches. There are segmental and subsegmental pulmonary emboli within branches of the left upper lobe and lingular pulmonary arteries. Heart: The heart is enlarged and without pericardial effusion. There are coronary artery calcifications. Lungs and pleural spaces: Evaluation of the lung parenchyma is degraded by motio n artifact. Mild emphysematous change is observed. The trachea and central airways are clear. Scarring/atelectasis is noted at both lung bases. There is no airspace consolidation typical for pneumonia or pleural effusion. Mediastinum: There is no mediastinal lymphadenopathy. Britt: Clear. Axillae: There is no axillary lymphadenopathy. Upper abdomen: There is a large hiatal hernia. Partially visualized upper abdominal viscera is within normal limits. Skeletal structures: The skeletal structures are osteopenic. No lytic or blastic bony lesions are seen. Degenerative change is noted in the shoulders and spine. IMPRESSION: 1. Extensive bilateral pulmonary embolus as above. 2. Cardiomegaly and mild emphysema. 3. There is no airspace consolidation typical for pneumonia or pleural effusion. 4. Large hiatal hernia. 5. Additional findings as above. ACT 112: Negative or not required by law. Electronically signed by: Rahat Jacobson M.D. 08/07/2023 11:30 AM 08/07/23 10:26 CT angio chest PE protocol Stat Pending Results Patient Have Any Pending Studies at Discharge: No Discharge Instructions Given to Patient (Per Discharging Provider) PLEASE REFER TO YOUR NEW MEDICATION LIST AND FOLLOW INSTRUCTIONS CAREFULLY. YOUR NEW MEDICATIONS INCLUDE: Eliquis-blood thinner for pulmonary embolus Do not take medications under the class of NSAIDs including aspirin, ibuprofen, naproxen, etc. If you sustain any head trauma, please return to the ER immediately for evaluation. PLEASE CALL YOUR PRIMARY CARE PHYSICIAN OR RETURN TO THE ER IF WITH WORSENING OF SYMPTOMS, INCLUDING Shortness of breath, chest pain, dizziness, fevers or chills, uncontrolled bleeding etc. FOLLOW UP WITH PRIMARY CARE PHYSICIAN OUTLINED ABOVE. Total Time Total Time Spent Total Time Spent (In Minutes): >30 minutes
== END 2023-08-09 14:21 | disposition home or self-care (01) | DRG 176 ==
LOC: ED 09:55 → 2S 12:17 → SUATTDRO 12:17 → 2S 12:38